=== PATIENT | male | born 1980 | race Hispanic/Latino ===

== ENCOUNTER 2020-07-17 09:44 | Inpatient (IN) | payer SELFPAY ==
--- NOTE | 2020-07-17 10:41 | Event Note ---
ED Screening Note Date of service: 07/17/20 Time: 10:40 ED Screening Note: Patient complains of chest pain epigastric pain with nausea and vomiting Was seen at [facility] for the same Actively vomiting in triage Admits to use of meth and marijuana This initial assessment/diagnostic orders/clinical plan/treatment(s) is/are subject to change based on patients health status, clinical progression and re- assessment by fellow clinical providers in the ED. Further treatment and workup at subsequent clinical providers discretion. Patient/guardian urged not to elope from the ED as their condition may be serious if not clinically assessed and managed. Initial orders include: Labs EKG Chest x-ray
--- NOTE | 2020-07-17 11:19 | XRay Report ---
CHEST 2 VIEWS INDICATION / CLINICAL INFORMATION: chest pain. COMPARISON: None available. FINDINGS: SUPPORT DEVICES: None. HEART / MEDIASTINUM: No significant abnormality. LUNGS / PLEURA: No significant pulmonary or pleural abnormality. No pneumothorax. ADDITIONAL FINDINGS: No significant additional findings. IMPRESSION: 1. No acute findings. Signer Name: Bereket Vázquez MD Signed: 07/17/2020 11:15 AM Workstation Name: [id number]
[2020-07-17 12:55] LABS: Hematocrit 39.7 % (35.5-45.6); Hemoglobin 13.6 gm/dl (11.8-15.2); Mean Corpuscular HGB Conc 34 % (32-34); Mean Corpuscular Volume 85 fl (84-94); Platelet Count 476 K/mm3 (140-440); Red Blood Count 4.68 M/mm3 (3.65-5.03); Red Cell Distribution Width 14.6 % (13.2-15.2)
[2020-07-17 13:12] LABS: Alanine Aminotransferase 13 units/L (7-56); Albumin 4.5 g/dL (3.9-5); BUN/Creatinine Ratio 13; Blood Urea Nitrogen 12 mg/dL (9-20); Calcium 9.8 mg/dL (8.4-10.2); Hemolysis Index 2
[2020-07-17 13:57] LABS: Total Cells Counted 100
[2020-07-17 13:58] LABS: RBC Morphology Normal
[2020-07-17 13:59] LABS: Platelet Estimate Consistent w Auto
[2020-07-17] MEDS ORDERED: ASPIRIN 325 MG TAB PO ONE (17:07)
--- NOTE | 2020-07-17 17:34 | Emergency Department Report ---
ED Chest Pain HPI - General Chief Complaint: Chest Pain Stated Complaint: CHEST PAIN PUI?: No Time Seen by Provider: 07/17/20 16:47 Source: patient Mode of arrival: Ambulatory Limitations: No Limitations - History of Present Illness Initial Comments: 40-year-old male with history of DM 2 and methamphetamine use brought in by EMS for chest/epigastric pain which began last night. The patient states that his last bowel movement was a few days ago. He says that last night he developed pain in his chest and epigastrium which he describes as pressure-like. He admits to using methamphetamine yesterday via inhalation. He says that last night although the pain was in his chest, this morning it migrated more to his abdomen. It was accompanied by nausea and vomiting which is since resolved. The patient's states that the pain has been constant but the last time he had chest pain was last night. With the chest pain, it was nonradiating and was not accompanied by shortness of breath, palpitations, or radiation of the pain to the arms or to the jaw. He denies IV drug use or use of any other substances. At this time he no longer feels nauseated but does have some pain in his abdomen. He denies any other associated symptoms or complaints. - Related Data Allergies Allergy/AdvReac Type Severity Reaction Status Date / Time No Known Allergies Allergy Verified 07/17/20 22:16 Heart Score - HEART Score History: Slightly suspicious EKG: Normal Age: < 45 Risk factors: 1-2 risk factors Troponin: < normal limit HEART Score: 1 - EKG Read Time Time EKG Completed: 10:02 EKG Read Time: 10:10 - Critical Actions Critical Actions: 0-3 pts:0.9-1.7%risk of adverse cardiac event.Candidate for discharge ED Review of Systems ROS: Stated complaint: CHEST PAIN Other details as noted in HPI Constitutional: denies: fever, weakness Eyes: denies: eye pain, vision change ENT: denies: throat pain, epistaxis Respiratory: denies: cough, shortness of breath Cardiovascular: chest pain. denies: palpitations, syncope Gastrointestinal: abdominal pain, nausea, vomiting. denies: diarrhea Genitourinary: denies: dysuria Musculoskeletal: denies: back pain, myalgia Neurological: denies: headache, weakness ED Past Medical Hx - Past Medical History Previous Medical History?: Yes Hx Diabetes: Yes - Social History Smoking Status: Current Every Day Smoker Substance Use Type: Marijuana, Methamphetamines ED Physical Exam - Other Other exam information: GENERAL: Well developed. Well nourished. No acute distress HEENT: Normocephalic. Atratumatic. Dry mucous membranes. EYES: Extraocular movements are intact. Pupils are equal round and reactive to light bilaterally NECK: Supple. Trachea is midline. LUNGS: Nonlabored breathing. Equal chest rise bilaterally. Clear to auscultation bilaterally. HEART/CARDIOVASCULAR: Regular rate and rhythm. No murmurs or rubs. ABDOMEN: Abdomen is slightly distended but soft. Normal bowel sounds. There is tenderness of the RUQ and epigastrium without guarding or rebound SKIN: Skin is warm and dry NEURO: Patient is awake, alert, and oriented. No focal deficits. Normal motor and sensory exam throughout. Normal speech. MUSCULOSKELETAL: Normal ROM throughout. There are no tenderness or deformity. No significant limitation of range of motion. ED Course Vital Signs 07/17/20 07/17/20 07/17/20 10:06 19:17 19:24 Temperature 97.4 F L 98.6 F Pulse Rate 80 84 Respiratory 15 19 16 Rate Blood Pressure 180/113 Blood Pressure 169/106 [Left] O2 Sat by Pulse 100 100 Oximetry 07/17/20 19:47 Temperature Pulse Rate Respiratory 16 Rate Blood Pressure Blood Pressure [Left] O2 Sat by Pulse Oximetry AARON score - Aaron Score Age > 65: (0) No Aspirin use within the Past 7 Days: (0) No 3 or more CAD Risk Factors: (0) No 2 or more Angina events in past 24 hrs: (0) No Known CAD with more than 50% Stenosis: (0) No Elevated Cardiac Markers: (0) No ST Deviation Greater than 0.5mm: (0) No AARON Score: 0 ED Medical Decision Making - Lab Data Result diagrams: 07/17/20 12:11 07/17/20 12:11 Laboratory Results - last 24 hr 07/17/20 07/17/20 07/17/20 10:05 12:11 12:11 WBC 30.1 H RBC 4.68 Hgb 13.6 Hct 39.7 MCV 85 MCH 29 MCHC 34 RDW 14.6 Plt Count 476 H Add Manual Diff Complete Total Counted 100 Seg Neuts % (Manual) 86.0 H Lymphocytes % (Manual) 6.0 L Monocytes % (Manual) 8.0 H Nucleated RBC % Not Reportable Seg Neutrophils # Man 25.9 H Band Neutrophils # 0.0 Lymphocytes # (Manual) 1.8 Abs React Lymphs (Man) 0.0 Monocytes # (Manual) 2.4 H Eosinophils # (Manual) 0.0 Basophils # (Manual) 0.0 Metamyelocytes # 0.0 Myelocytes # 0.0 Promyelocytes # 0.0 Blast Cells # 0.0 WBC Morphology Not Reportable Hypersegmented Neuts Not Reportable Hyposegmented Neuts Not Reportable Hypogranular Neuts Not Reportable Smudge Cells Not Reportable Toxic Granulation Not Reportable Toxic Vacuolation Not Reportable Dohle Bodies Not Reportable Pelger-Huet Anomaly Not Reportable Charlotte Rods Not Reportable Platelet Estimate Consistent w auto Clumped Platelets Not Reportable Plt Clumps, EDTA Not Reportable Large Platelets Not Reportable Giant Platelets Not Reportable Platelet Satelliting Not Reportable Plt Morphology Comment Not Reportable RBC Morphology Normal Dimorphic RBCs Not Reportable Polychromasia Not Reportable Hypochromasia Not Reportable Poikilocytosis Not Reportable Anisocytosis Not Reportable Microcytosis Not Reportable Macrocytosis Not Reportable Spherocytes Not Reportable Pappenheimer Bodies Not Reportable Sickle Cells Not Reportable Target Cells Not Reportable Tear Drop Cells Not Reportable Ovalocytes Not Reportable Helmet Cells Not Reportable Campos-Bostic Bodies Not Reportable Lefor Rings Not Reportable Chidi Cells Not Reportable Bite Cells Not Reportable Crenated Cell Not Reportable Elliptocytes Not Reportable Acanthocytes (Spur) Not Reportable Rouleaux Not Reportable Hemoglobin C Crystals Not Reportable Schistocytes Not Reportable Malaria parasites Not Reportable Tony Bodies Not Reportable Hem Pathologist Commnt No Sodium 138 Potassium 3.9 Chloride 97.6 L Carbon Dioxide 27 Anion Gap 17 BUN 12 Creatinine 0.9 Estimated GFR > 60 BUN/Creatinine Ratio 13 Glucose 126 H POC Glucose 140 H Calcium 9.8 Total Bilirubin 0.50 AST 13 ALT 13 Alkaline Phosphatase 132 H Troponin T < 0.010 Total Protein 8.5 H Albumin 4.5 Albumin/Globulin Ratio 1.1 Lipase 23 07/17/20 17:10 WBC RBC Hgb Hct MCV MCH MCHC RDW Plt Count Add Manual Diff Total Counted Seg Neuts % (Manual) Lymphocytes % (Manual) Monocytes % (Manual) Nucleated RBC % Seg Neutrophils # Man Band Neutrophils # Lymphocytes # (Manual) Abs React Lymphs (Man) Monocytes # (Manual) Eosinophils # (Manual) Basophils # (Manual) Metamyelocytes # Myelocytes # Promyelocytes # Blast Cells # WBC Morphology Hypersegmented Neuts Hyposegmented Neuts Hypogranular Neuts Smudge Cells Toxic Granulation Toxic Vacuolation Dohle Bodies Pelger-Huet Anomaly Charlotte Rods Platelet Estimate Clumped Platelets Plt Clumps, EDTA Large Platelets Giant Platelets Platelet Satelliting Plt Morphology Comment RBC Morphology Dimorphic RBCs Polychromasia Hypochromasia Poikilocytosis Anisocytosis Microcytosis Macrocytosis Spherocytes Pappenheimer Bodies Sickle Cells Target Cells Tear Drop Cells Ovalocytes Helmet Cells Campos-Bostic Bodies Lefor Rings Chidi Cells Bite Cells Crenated Cell Elliptocytes Acanthocytes (Spur) Rouleaux Hemoglobin C Crystals Schistocytes Malaria parasites Tony Bodies Hem Pathologist Commnt Sodium Potassium Chloride Carbon Dioxide Anion Gap BUN Creatinine Estimated GFR BUN/Creatinine Ratio Glucose POC Glucose Calcium Total Bilirubin AST ALT Alkaline Phosphatase Troponin T < 0.010 Total Protein Albumin Albumin/Globulin Ratio Lipase - EKG Data -: EKG Interpreted by [place] EKG shows normal: sinus rhythm Rate: normal - EKG Data 07/17/20 17:31 Normal sinus rhythm. Normal axis. Normal intervals. No significant ST segment or T wave abnormalities. - Radiology Data CT ABDOMEN AND PELVIS WITH CONTRAST INDICATION: Abdominal pain right upper quadrant. TECHNIQUE: Axial CT images were obtained through the abdomen and pelvis after IV contrast. All CT scans at this location are performed using CT dose reduction for ALARA by means of automated exposure control. COMPARISON: None available. FINDINGS: LOWER CHEST: No significant abnormality. LIVER: No significant abnormality. GALLBLADDER: Probable gallbladder thickening with severe pericholecystic inflammation within the right upper quadrant abdomen. No definite CT evidence for gallstones. BILE DUCTS: No significant abnormality. PANCREAS: No significant abnormality. SPLEEN: No significant abnormality. ADRENALS: No significant abnormality. RIGHT KIDNEY and URETER: No significant abnormality. LEFT KIDNEY and URETER: No significant abnormality. STOMACH and SMALL BOWEL: Moderate inflammation and edema anterior to duodenal bulb likely secondary to acute cholecystitis, however, duodenitis cannot be excluded COLON: No significant abnormality. APPENDIX: No significant abnormality. PERITONEUM: Trace amount of free pelvic fluid. No free air. No fluid collection. LYMPH NODES: No significant adenopathy. AORTA and ARTERIES: No significant abnormality. IVC and VEINS: No significant abnormality. URINARY BLADDER: No significant abnormality. REPRODUCTIVE ORGANS: No significant abnormality. ADDITIONAL FINDINGS: None. SKELETAL SYSTEM: No significant abnormality. IMPRESSION: 1. Probable acute cholecystitis versus less likely duodenitis/peptic ulcer disease. Findings discussed with Dr. Marie and gallbladder ultrasound r ecommended . 2. No visualized duodenal ulcer or free air. Signer Name: Sumeet Leblanc MD Signed: 07/17/2020 6:11 PM Workstation Name: [id number] LIMITED RUQ ABDOMINAL ULTRASOUND INDICATION / CLINICAL INFORMATION: RUQ pain. COMPARISON: CT abdomen 6:29 PM same day FINDINGS: PANCREAS: Visualized portions show no significant abnormality. ABDOMINAL AORTA: No significant abnormality. IVC: No significant abnormality.. LIVER: The liver measures 16 cm in length. No significant abnormality. Normal hepatopedal blood flow in the main portal vein. GALLBLADDER: Large amount of gallbladder sludge. Thickened edematous gallbladder wall measuring 5 mm characteristic for acute cholecystitis BILE DUCTS: No significant abnormality. Common bile duct measures 4 mm. RIGHT KIDNEY: No significant abnormality visualized. FREE FLUID: None. ADDITIONAL FINDINGS: None. IMPRESSION: 1. Acute cholecystitis with large amount of gallbladder sludge and thickened and edematous gallbladder wall Signer Name: Sumeet Leblanc MD Signed: 07/17/2020 9:12 PM Workstation Name: [id number] - Medical Decision Making 40-year-old male with history of DM 2 presenting with chest/epigastric pain since last night. The patient admits to using methamphetamine last night but denies that the pain started after using. Patient was nauseated and vomiting upon arrival but this resolved. Patient states that the pain started in his chest but this resolved last night and the pain moved mainly to his epigastrium. He says the last time he experienced chest pain was last night. On exam, he is noted to have very dry mucous membranes. His abdomen is soft but slightly distended. There is tenderness noted in the right upper quadrant and epigastrium. We will perform broad work-up with full set of labs, EKG, and troponin x2. We will also obtain chest x-ray and CT of the abdomen and pelvis with IV contrast to assess for evidence of cholecystitis, pancreatitis, or other intra-abdominal catastrophes. Will give 1L IVFs and 325 mg of aspirin given the patient's chief complaint was initially chest pain. Troponin is negative x2. Labs are remarkable for leukocytosis of 30.1 which may be stress leukocytosis given that the patient was retching and admits to methamphetamine use. There is no significant electrolyte abnormalities or elevated lipase to suggest pancreatitis. Chest x-ray is within normal limits. Heart score is 1, corresponding to low risk of major cardiac event. We will foll ow up findings of the CT scan. At 7 PM I received a call from the radiologist who said states that the patient CT of the abdomen and pelvis reveals extensive inflammation in the right upper quadrant which may be secondary to cholecystitis or duodenitis. He recommends further evaluation with ultrasound. Given that there is evidence for some type of intra-abdominal infection, we will give broad-spectrum Zosyn and a total of 3 L of IV fluids. We will give Dilaudid and Zofran for the patient's symptoms. At 9:19 PM I spoke with Dr. Stokes of general surgery regarding the case. He recommends making the patient n.p.o. and continuing Zosyn. He says he will see the patient first thing in the morning. Critical Care Time: No Critical care attestation.: If time is entered above; I have spent that time in minutes in the direct care of this critically ill patient, excluding procedure time. ED Disposition Clinical Impression: Cholecystitis, Methamphetamine abuse Chest pain Qualifiers: Chest pain type: unspecified Qualified Code(s): R07.9 - Chest pain, unspecified Disposition: OP ADMIT IP TO THIS HOSP Is pt being admited?: Yes Condition: Stable
[2020-07-17] MEDS ORDERED: SODIUM CHLORIDE 0.9% 1000 ML 1,000 ML IV ONE ×3 (18:20→19:14)
[2020-07-17] MEDS ORDERED: PIPERACIL/TAZOBACTA 4.5/NS 100 4.5 GM/100 ML VIAL IV ONE (19:11)
[2020-07-17] MEDS ORDERED: HYDROmorphone 1 MG/1 ML INJ IV ONE (19:12)
[2020-07-17] MEDS ORDERED: ONDANSETRON 4 MG/2 ML INJ IV ONE (19:13)
--- NOTE | 2020-07-17 19:15 | Cat Scan Report ---
CT ABDOMEN AND PELVIS WITH CONTRAST INDICATION: Abdominal pain right upper quadrant. TECHNIQUE: Axial CT images were obtained through the abdomen and pelvis after IV contrast. All CT scans at this location are performed using CT dose reduction for ALARA by means of automated exposure control. COMPARISON: None available. FINDINGS: LOWER CHEST: No significant abnormality. LIVER: No significant abnormality. GALLBLADDER: Probable gallbladder thickening with severe pericholecystic inflammation within the righ t upper quadrant abdomen. No definite CT evidence for gallstones. BILE DUCTS: No significant abnormality. PANCREAS: No significant abnormality. SPLEEN: No significant abnormality. ADRENALS: No significant abnormality. RIGHT KIDNEY and URETER: No significant abnormality. LEFT KIDNEY and URETER: No significant abnormality. STOMACH and SMALL BOWEL: Moderate inflammation and edema anterior to duodenal bulb likely secondary t o acute cholecystitis, however, duodenitis cannot be excluded COLON: No significant abnormality. APPENDIX: No significant abnormality. PERITONEUM: Trace amount of free pelvic fluid. No free air. No fluid collection. LYMPH NODES: No significant adenopathy. AORTA and ARTERIES: No significant abnormality. IVC and VEINS: No significant abnormality. URINARY BLADDER: No significant abnormality. REPRODUCTIVE ORGANS: No significant abnormality. ADDITIONAL FINDINGS: None. SKELETAL SYSTEM: No significant abnormality. IMPRESSION: 1. Probable acute cholecystitis versus less likely duodenitis/peptic ulcer disease. Findings discusse d with Dr. Marie and gallbladder ultrasound recommended . 2. No visualized duodenal ulcer or free air. Signer Name: Sumeet Leblanc MD Signed: 07/17/2020 7:11 PM Workstation Name: [id number]
[2020-07-17] MEDS ORDERED: ACETAMINOPHEN 325 MG TAB PO PRN ×2 (22:08)
[2020-07-17] MEDS ORDERED: NITROGLYCERIN 0.4 MG TAB SUBL SL PRN (22:08)
[2020-07-17] MEDS ORDERED: ONDANSETRON 4 MG/2 ML INJ IV PRN (22:08)
--- NOTE | 2020-07-17 22:15 | History and Physical Report ---
History of Present Illness Date of examination: 07/17/20 Date of admission: 07/17/20 Chief complaint: Chest pain epigastric pain History of present illness: 40-year-old male with past medical history of DM 2 and methamphetamine use brought in by EMS for chest/epigastric pain which is pressure-like which began last night after using methamphetamine yesterday by inhalation. Patient says that last night although the pain was in his chest, this morning it migrated more to his abdomen. It was accompanied by nausea and vomiting which is since resolved. The patient's states that the pain has been constant but the last time he had chest pain was last night. With the chest pain, it was nonradiating and was not accompanied by shortness of breath, palpitations, or radiation of the pain to the arms or to the jaw. He denies IV drug use or use of any other substances. At this time he no longer feels nauseated but does have some pain in his abdomen. He denies any other associated symptoms or complaints. In the emergency room patient WBC is 30.[address] scan of the abdomen and pelvis showed extensive inflammation in the right upper quadrant which may secondary to cholecystitis or duodenitis. Past History Past Medical History: diabetes, other (Methamphetamine abuse) Medications and Allergies Allergies Allergy/AdvReac Type Severity Reaction Status Date / Time No Known Allergies Allergy Unverified 07/17/20 10:14 Review of Systems Cardiovascular: chest pain Gastrointestinal: abdominal pain, nausea, vomiting, constipation Exam - Constitutional Vitals: Temp Pulse Resp BP Pulse Ox 98.6 F 84 16 169/106 100 07/17/20 19:24 07/17/20 19:24 07/17/20 19:47 07/17/20 19:24 07/17/20 19:24 General appearance: Present: no acute distress, well-nourished - EENT Eyes: Present: PERRL ENT: hearing intact, clear oral mucosa - Neck Neck: Present: supple, normal ROM - Respiratory Respiratory effort: normal Respiratory: bilateral: CTA - Cardiovascular Heart Sounds: Present: S1 & S2. Absent: rub, click - Extremities Extremities: pulses symmetrical, No edema Peripheral Pulses: within normal limits - Abdominal General gastrointestinal: Present: soft, tender, distended, normal bowel sounds Male genitourinary: Present: normal - Integumentary Integumentary: Present: clear, warm, dry - Musculoskeletal Musculoskeletal: gait normal, strength equal bilaterally - Psychiatric Psychiatric: appropriate mood/affect, intact judgment & insight - Neurologic Neurologic: CNII-XII intact, moves all extremities HEART Score - HEART Score EKG: Normal Age: < 45 Risk factors: 1-2 risk factors Troponin: Troponin T < 0.010 ng/mL (0.00-0.029) 07/17/20 17:10 Troponin: < normal limit Results - Labs CBC & Chem 7: 07/17/20 12:11 07/17/20 12:11 Labs: Laboratory Last Values WBC 30.1 K/mm3 (4.5-11.0) H 07/17/20 12:11 RBC 4.68 M/mm3 (3.65-5.03) 07/17/20 12:11 Hgb 13.6 gm/dl (11.8-15.2) 07/17/20 12:11 Hct 39.7 % (35.5-45.6) 07/17/20 12:11 MCV 85 fl (84-94) 07/17/20 12:11 MCH 29 pg (28-32) 07/17/20 12:11 MCHC 34 % (32-34) 07/17/20 12:11 RDW 14.6 % (13.2-15.2) 07/17/20 12:11 Plt Count 476 K/mm3 (140-440) H 07/17/20 12:11 Add Manual Diff Complete 07/17/20 12:11 Total Counted 100 07/17/20 12:11 Seg Neuts % (Manual) 86.0 % (40.0-70.0) H 07/17/20 12:11 Lymphocytes % (Manual) 6.0 % (13.4-35.0) L 07/17/20 12:11 Monocytes % (Manual) 8.0 % (0.0-7.3) H 07/17/20 12:11 Nucleated RBC % Not Reportable 07/17/20 12:11 Seg Neutrophils # Man 25.9 K/mm3 (1.8-7.7) H 07/17/20 12:11 Band Neutrophils # 0.0 K/mm3 07/17/20 12:11 Lymphocytes # (Manual) 1.8 K/mm3 (1.2-5.4) 07/17/20 12:11 Abs React Lymphs (Man) 0.0 K/mm3 07/17/20 12:11 Monocytes # (Manual) 2.4 K/mm3 (0.0-0.8) H 07/17/20 12:11 Eosinophils # (Manual) 0.0 K/mm3 (0.0-0.4) 07/17/20 12:11 Basophils # (Manual) 0.0 K/mm3 (0.0-0.1) 07/17/20 12:11 Metamyelocytes # 0.0 K/mm3 07/17/20 12:11 Myelocytes # 0.0 K/mm3 07/17/20 12:11 Promyelocytes # 0.0 K/mm3 07/17/20 12:11 Blast Cells # 0.0 K/mm3 07/17/20 12:11 WBC Morphology Not Reportable 07/17/20 12:11 Hypersegmented Neuts Not Reportable 07/17/20 12:11 Hyposegmented Neuts Not Reportable 07/17/20 12:11 Hypogranular Neuts Not Reportable 07/17/20 12:11 Smudge Cells Not Reportable 07/17/20 12:11 Toxic Granulation Not Reportable 07/17/20 12:11 Toxic Vacuolation Not Reportable 07/17/20 12:11 Dohle Bodies Not Reportable 07/17/20 12:11 Pelger-Huet Anomaly Not Reportable 07/17/20 12:11 Charlotte Rods Not Reportable 07/17/20 12:11 Platelet Estimate Consistent w auto 07/17/20 12:11 Clumped Platelets Not Reportable 07/17/20 12:11 Plt Clumps, EDTA Not Reportable 07/17/20 12:11 Large Platelets Not Reportable 07/17/20 12:11 Giant Platelets Not Reportable 07/17/20 12:11 Platelet Satelliting Not Reportable 07/17/20 12:11 Plt Morphology Comment Not Reportable 07/17/20 12:11 RBC Morphology Normal 07/17/20 12:11 Dimorphic RBCs Not Reportable 07/17/20 12:11 Polychromasia Not Reportable 07/17/20 12:11 Hypochromasia Not Reportable 07/17/20 12:11 Poikilocytosis Not Reportable 07/17/20 12:11 Anisocytosis Not Reportable 07/17/20 12:11 Microcytosis Not Reportable 07/17/20 12:11 Macrocytosis Not Reportable 07/17/20 12:11 Spherocytes Not Reportable 07/17/20 12:11 Pappenheimer Bodies Not Reportable 07/17/20 12:11 Sickle Cells Not Reportable 07/17/20 12:11 Target Cells Not Reportable 07/17/20 12:11 Tear Drop Cells Not Reportable 07/17/20 12:11 Ovalocytes Not Reportable 07/17/20 12:11 Helmet Cells Not Reportable 07/17/20 12:11 [place] Bodies Not Reportable 07/17/20 12:11 [place] Rings Not Reportable 07/17/20 12:11 Antoine Cells Not Reportable 07/17/20 12:11 Bite Cells Not Reportable 07/17/20 12:11 Crenated Cell Not Reportable 07/17/20 12:11 Elliptocytes Not Reportable 07/17/20 12:11 Acanthocytes (Spur) Not Reportable 07/17/20 12:11 Rouleaux Not Reportable 07/17/20 12:11 Hemoglobin C Crystals Not Reportable 07/17/20 12:11 Schistocytes Not Reportable 07/17/20 12:11 Malaria parasites Not Reportable 07/17/20 12:11 Tony Bodies Not Reportable 07/17/20 12:11 Hem Pathologist Commnt No 07/17/20 12:11 Sodium 138 mmol/L (137-145) 07/17/20 12:11 Potassium 3.9 mmol/L (3.6-5.0) 07/17/20 12:11 Chloride 97.6 mmol/L (98-107) L 07/17/20 12:11 Carbon Dioxide 27 mmol/L (22-30) 07/17/20 12:11 Anion Gap 17 mmol/L 07/17/20 12:11 BUN 12 mg/dL (9-20) 07/17/20 12:11 Creatinine 0.9 mg/dL (0.8-1.3) 07/17/20 12:11 Estimated GFR > 60 ml/min 07/17/20 12:11 BUN/Creatinine Ratio 13 % 07/17/20 12:11 Glucose 126 mg/dL (75-100) H 07/17/20 12:11 POC Glucose 140 mg/dL (70-105) H 07/17/20 10:05 Calcium 9.8 mg/dL (8.4-10.2) 07/17/20 12:11 Total Bilirubin 0.50 mg/dL (0.1-1.2) 07/17/20 12:11 AST 13 units/L (5-40) 07/17/20 12:11 ALT 13 units/L (7-56) 07/17/20 12:11 Alkaline Phosphatase 132 units/L (35-129) H 07/17/20 12:11 Troponin T < 0.010 ng/mL (0.00-0.029) 07/17/20 17:10 Total Protein 8.5 g/dL (6.3-8.2) H 07/17/20 12:11 Albumin 4.5 g/dL (3.9-5) 07/17/20 12:11 Albumin/Globulin Ratio 1.1 % 07/17/20 12:11 Lipase 23 units/L (13-60) 07/17/20 12:11 - Imaging and Cardiology CT scan - abdomen: report reviewed Assessment and Plan VTE prophylaxis?: Chemical Plan of care discussed with patient/family: Yes - Patient Problems (1) Cholecystitis Current Visit: Yes Status: Acute Plan to address problem: Admit the patient to the medical floor. N.p.o. D5 half-normal saline at the rate of 100 cc/h. Pepcid 20 mg IV every 12 hours. Morphine 2 mg IV every 4 hours as needed. Zosyn 4.5 g IV every 8 hours. Due to the blood culture. Will consult surgery for evaluation. Recheck CBC BMP in the morning (2) Duodenitis Current Visit: Yes Status: Acute Plan to address problem: Pepcid 20 mg IV every 12 hours. Zofran 4 mg IV every 6 hours as needed. If needed will consult GI (3) Nausea & vomiting Current Visit: Yes Status: Acute Plan to address problem: Nothing by mouth. IV fluid D5 half-normal saline at the rate of 100 cc/h.Pepcid 20 mg IV every 12 hours. Zofran 4 mg IV every 6 hours as needed. If needed will consult GI (4) Abdominal pain Current Visit: Yes Status: Acute Plan to address problem: Pepcid 20 mg IV every 12 hours. Zofran 4 mg IV every 6 hours as needed. Morphine 2 mg IV every 4 hours as needed. If needed will consult GI (5) Diabetes, type 1.5, uncontrolled, managed as type 2 Current Visit: Yes Status: Acute Plan to address problem: We will put the patient on Humalog sliding scale with Accu-Chek every 6 hours. Diabetic education. Recheck BMP in the morning (6) Methamphetamine abuse Current Visit: Yes Status: Acute Plan to address problem: We counseled regarding quit taking meth amphetamine (7) DVT prophylaxis Current Visit: Yes Status: Acute Plan to address problem: Heparin 5000 units subcu every 8 hours for DVT prophylaxis and Pepcid 20 mg IV every 12 hours for GI prophylaxis. Patient is a full code
--- NOTE | 2020-07-17 22:17 | Ultrasound Report ---
LIMITED RUQ ABDOMINAL ULTRASOUND INDICATION / CLINICAL INFORMATION: RUQ pain. COMPARISON: CT abdomen 6:29 PM same day FINDINGS: PANCREAS: Visualized portions show no significant abnormality. ABDOMINAL AORTA: No significant abnormality. IVC: No significant abnormality.. LIVER: The liver measures 16 cm in length. No significant abnormality. Normal hepatopedal blood flow in the main portal vein. GALLBLADDER: Large amount of gallbladder sludge. Thickened edematous gallbladder wall measuring 5 mm characteristic for acute cholecystitis BILE DUCTS: No significant abnormality. Common bile duct measures 4 mm. RIGHT KIDNEY: No significant abnormality visualized. FREE FLUID: None. ADDITIONAL FINDINGS: None. IMPRESSION: 1. Acute cholecystitis with large amount of gallbladder sludge and thickened and edematous gallbladde r wall Signer Name: Sumeet Leblanc MD Signed: 07/17/2020 10:12 PM Workstation Name: [id number]
[2020-07-17] MEDS ORDERED: DEXTROSE 50% IN WATER (25GM) 50 ML SYRINGE IV PRN (22:22)
[2020-07-17 23:32] LABS: Hemoglobin 12.1 gm/dl (11.8-15.2); Mean Corpuscular HGB Conc 35 % (32-34); Mean Corpuscular Volume 86 fl (84-94); Platelet Count 385 K/mm3 (140-440); Red Blood Count 4.08 M/mm3 (3.65-5.03); Red Cell Distribution Width 14.8 % (13.2-15.2)
[2020-07-17 23:51] LABS: Blood Urea Nitrogen 9 mg/dL (9-20); Calcium 8.1 mg/dL (8.4-10.2); Hemolysis Index 9
[2020-07-17 23:54] LABS: BUN/Creatinine Ratio 13
[2020-07-18] MEDS: INSULIN LISPRO 100 UNIT/ML SUB-Q SCH ×4 (00:50→17:33)
[2020-07-18] MEDS: D5W/0.45% NACL 1,000 ML IV SCH ×2 (00:57→22:55)
[2020-07-18 03:15] LABS: Band Neutrophils # (Manual) 1.1 K/mm3; Total Cells Counted 100
[2020-07-18 03:16] LABS: Platelet Estimate Consistent w Auto; RBC Morphology Normal
[2020-07-18] MEDS: PIPERACIL/TAZOBACTA 4.5/NS 100 4.5 GM/100 ML VIAL IV SCH ×3 (03:56→22:33)
[2020-07-18] MEDS: IPRATROPIUM/ALBUTEROL SULFATE 3 ML AMPUL.NEB IH SCH ×4 (04:01→21:32)
[2020-07-18] MEDS: MORPHINE 2 MG/1 ML INJ IV PRN ×5 (04:30→22:47)
[2020-07-18 04:49] LABS: Hematocrit 36.5 % (35.5-45.6); Hemoglobin 12.7 gm/dl (11.8-15.2); Mean Corpuscular HGB Conc 35 % (32-34); Mean Corpuscular Volume 86 fl (84-94); Platelet Count 375 K/mm3 (140-440); Red Blood Count 4.26 M/mm3 (3.65-5.03); Red Cell Distribution Width 14.9 % (13.2-15.2)
[2020-07-18 05:04] LABS: Blood Urea Nitrogen 9 mg/dL (9-20); Calcium 8.4 mg/dL (8.4-10.2); Hemolysis Index 2
[2020-07-18] MEDS: HEPARIN 5,000 UNIT/1 ML VIAL SUB-Q SCH ×4 (05:23→22:33)
[2020-07-18 05:25] LABS: BUN/Creatinine Ratio 13
[2020-07-18] MEDS: FAMOTIDINE 20 MG/2 ML INJ IV SCH ×3 (08:36→22:33)
[2020-07-18 11:00] LABS: Band Neutrophils # (Manual) 1.5 K/mm3; Total Cells Counted 100
[2020-07-18 11:01] LABS: Platelet Estimate Consistent w Auto; RBC Morphology Normal
--- NOTE | 2020-07-18 12:28 | Consultation ---
History of Present Illness Consult date: 07/18/20 Reason for consult: abdominal pain Chief complaint: chest/epigastric pain - History of present illness History of present illness: 40 yo male, admitted meth abuser presented to the ED yesterday with a 24 hour h/o chest/epigastric pain associated with nausea and vomiting. Denies melena or hematochezia. Past History Past Medical History: diabetes, other (Methamphetamine abuse) Medications and Allergies Allergies Allergy/AdvReac Type Severity Reaction Status Date / Time No Known Allergies Allergy Verified 07/17/20 22:16 Home Medications Medication Instructions Recorded Confirmed Last Taken Type Nicotine Polacrilex [Nicotine 2 mg PO BID 07/18/20 07/18/20 Unknown History Lozenge] One-Daily Multi-Vitamin 1 tab PO BID 07/18/20 07/18/20 Unknown History PROzac 1 cap PO DAILY 07/18/20 07/18/20 Unknown History cloNIDine [Catapres] 0.1 mg PO DAILY 07/18/20 07/18/20 Unknown History hydrOXYzine PAMOATE [Vistaril] 25 mg PO TID 07/18/20 07/18/20 Unknown History lisinopriL [Lisinopril] 10 mg PO DAILY 07/18/20 07/18/20 Unknown History traZODone [Desyrel] 50 mg PO HS PRN 07/18/20 07/18/20 Unknown History Active Meds: Active Medications Acetaminophen (Acetaminophen 325 Mg Tab) 650 mg PO Q4H PRN PRN Reason: Pain MILD(1-3)/Fever >100.5/CONRAD Albuterol/Ipratropium (Ipratropium/Albuterol Sulfate 3 Ml Ampul.Neb) 1 ampul IH Q6HRT [facility] Last Admin: 07/18/20 08:04 Dose: 1 ampul Documented by: Aspirin (Aspirin 81 Mg Tab Chew) 81 mg PO QDAY [facility] Atorvastatin Calcium (Atorvastatin 40 Mg Tab) 40 mg PO QHS [facility] Dextrose (Dextrose 50% In Water (25gm) 50 Ml Syringe) 50 ml IV Q30MIN PRN; Protocol PRN Reason: Hypoglycemia Famotidine (Famotidine 20 Mg/2 Ml Inj) 20 mg IV BID [facility] Last Admin: 07/18/20 10:34 Dose: Not Given Documented by: Heparin Sodium (Porcine) (Heparin 5,000 Unit/1 Ml Vial) 5,000 unit SUB-Q Q8HR [facility] Last Admin: 07/18/20 05:23 Dose: 5,000 unit Documented by: Hydralazine HCl (Hydralazine 20 Mg/1 Ml Inj) 10 mg IV Q6H PRN PRN Reason: htn Dextrose/Sodium Chloride (D5/0.45ns) 1,000 mls @ 100 mls/hr IV DIRECT [facility] Last Admin: 07/18/20 00:57 Dose: 100 mls/hr Documented by: Piperacillin Sod/Tazobactam Sod (Zosyn/Ns 4.5gm/100ml) 4.5 gm in 100 mls @ 200 mls/hr IV Q8H [facility]; Protocol Last Admin: 07/18/20 03:56 Dose: 200 mls/hr Documented by: Insulin Human Lispro (Insulin Lispro 100 Unit/Ml) 0 unit SUB-Q Q6HR [facility]; Protocol Last Admin: 07/18/20 06:17 Dose: Not Given Documented by: Morphine Sulfate (Morphine 2 Mg/1 Ml Inj) 2 mg IV Q4H PRN PRN Reason: Pain, Moderate (4-6) Last Admin: 07/18/20 08:35 Dose: 2 mg Documented by: Nitroglycerin (Nitroglycerin 0.4 Mg Tab Subl) 0.4 mg SL Q5M PRN PRN Reason: Chest Pain Ondansetron HCl (Ondansetron 4 Mg/2 Ml Inj) 4 mg IV Q8H PRN PRN Reason: Nausea And Vomiting Sodium Chloride (Sodium Chloride 0.9% 10 Ml Flush Syringe) 10 ml IV BID [facility] Sodium Chloride (Sodium Chloride 0.9% 10 Ml Flush Syringe) 10 ml IV PRN PRN PRN Reason: LINE FLUSH Tramadol HCl (Tramadol 50 Mg Tab) 50 mg PO Q6H PRN PRN Reason: Pain, Moderate (4-6) Review of Systems All systems: negative (none) Exam Vital Signs Temp Pulse Resp BP Pulse Ox 97.4 F L 80 15 180/113 100 07/17/20 10:06 07/17/20 10:06 07/17/20 10:06 07/17/20 10:06 07/17/20 10:06 - General physical appearance Positive: well developed, well nourished, no distress - Eyes Positive: PERRL, normal occular movement - ENT Positive: normal pinna, normal nares, normal mucosa, no hearing loss, no congestion - Neck Positive: no masses, no bruits, trachea midline, no venous distension - Respiratory Positive: normal expansion, normal respiratory effort, clear to auscultation - Cardiovascular Rhythm: regular Heart Sounds: Present: S1 & S2. Absent: rub, click - Extremities Extremities: no ischemia, pulses symmetrical, No edema - Breasts Breasts: normal, no mass, no skin changes - Abdomen Abdomen: Present: soft, bowel sounds hypoactive, other (Mildly tender in the RUQ without rebound or guarding.). Absent: distended Hernia: none - Genitourinary Male Genitourinary: normal Female Genitourinary: normal - Integumentary no rash, no growths, no abnormal pigmentation - Neurologic Neurologic: alert and oriented to time, place and person, motor strength and sensation are grossly intact - Musculoskeletal normal gait, normal posture - Psychiatric Psychiatric: appropriate mood/affect, intact judgment & insight Results - Labs 07/18/20 04:05 07/18/20 04:05 Abnormal lab results 07/17/20 07/17/20 07/17/20 Range/Units 10:05 12:11 12:11 WBC 30.1 H (4.5-11.0) K/mm3 Hct (35.5-45.6) % MCHC (32-34) % Plt Count 476 H (140-440) K/mm3 Seg Neuts % (Manual) 86.0 H (40.0-70.0) % Lymphocytes % (Manual) 6.0 L (13.4-35.0) % Monocytes % (Manual) 8.0 H (0.0-7.3) % Seg Neutrophils # Man 25.9 H (1.8-7.7) K/mm3 Lymphocytes # (Manual) (1.2-5.4) K/mm3 Monocytes # (Manual) 2.4 H (0.0-0.8) K/mm3 Sodium (137-145) mmol/L Chloride 97.6 L (98-107) mmol/L Creatinine (0.8-1.3) mg/dL Glucose 126 H (75-100) mg/dL POC Glucose 140 H (70-105) mg/dL Calcium (8.4-10.2) mg/dL Alkaline Phosphatase 132 H (35-129) units/L Total Protein 8.5 H (6.3-8.2) g/dL 07/17/20 07/17/20 07/18/20 Range/Units 23:05 23:05 00:48 WBC 37.1 H (4.5-11.0) K/mm3 Hct 35.0 L (35.5-45.6) % MCHC 35 H (32-34) % Plt Count (140-440) K/mm3 Seg Neuts % (Manual) 86.0 H (40.0-70.0) % Lymphocytes % (Manual) 3.0 L (13.4-35.0) % Monocytes % (Manual) 8.0 H (0.0-7.3) % Seg Neutrophils # Man 31.9 H (1.8-7.7) K/mm3 Lymphocytes # (Manual) 1.1 L (1.2-5.4) K/mm3 Monocytes # (Manual) 3.0 H (0.0-0.8) K/mm3 Sodium 135 L (137-145) mmol/L Chloride (98-107) mmol/L Creatinine 0.7 L (0.8-1.3) mg/dL Glucose 119 H (75-100) mg/dL POC Glucose 110 H (70-105) mg/dL Calcium 8.1 L D (8.4-10.2) mg/dL Alkaline Phosphatase (35-129) units/L Total Protein (6.3-8.2) g/dL 07/18/20 07/18/20 07/18/20 Range/Units 04:05 04:05 06:14 WBC 38.1 H (4.5-11.0) K/mm3 Hct (35.5-45.6) % MCHC 35 H (32-34) % Plt Count (140-440) K/mm3 Seg Neuts % (Manual) 85.0 H (40.0-70.0) % Lymphocytes % (Manual) 2.0 L (13.4-35.0) % Monocytes % (Manual) (0.0-7.3) % Seg Neutrophils # Man 32.4 H (1.8-7.7) K/mm3 Lymphocytes # (Manual) 0.8 L (1.2-5.4) K/mm3 Monocytes # (Manual) 2.7 H (0.0-0.8) K/mm3 Sodium 134 L (137-145) mmol/L Chloride (98-107) mmol/L Creatinine 0.7 L (0.8-1.3) mg/dL Glucose 123 H (75-100) mg/dL POC Glucose 137 H (70-105) mg/dL Calcium (8.4-10.2) mg/dL Alkaline Phosphatase (35-129) units/L Total Protein (6.3-8.2) g/dL Diabetes panel 07/17/20 07/17/20 07/18/20 Range/Units 12:11 23:05 04:05 Sodium 138 135 L 134 L (137-145) mmol/L Potassium 3.9 4.1 4.2 (3.6-5.0) mmol/L Chloride 97.6 L 100.5 98.4 (98-107) mmol/L Carbon Dioxide 27 24 27 (22-30) mmol/L BUN 12 9 9 (9-20) mg/dL Creatinine 0.9 0.7 L 0.7 L (0.8-1.3) mg/dL Glucose 126 H 119 H 123 H (75-100) mg/dL Calcium 9.8 8.1 L D 8.4 (8.4-10.2) mg/dL AST 13 (5-40) units/L ALT 13 (7-56) units/L Alkaline Phosphatase 132 H (35-129) units/L Total Protein 8.5 H (6.3-8.2) g/dL Albumin 4.5 (3.9-5) g/dL Calcium panel 07/17/20 07/17/20 07/18/20 Range/Units 12:11 23:05 04:05 Calcium 9.8 8.1 L D 8.4 (8.4-10.2) mg/dL Albumin 4.5 (3.9-5) g/dL Pituitary panel 07/17/20 07/17/20 07/18/20 Range/Units 12:11 23:05 04:05 Sodium 138 135 L 134 L (137-145) mmol/L Potassium 3.9 4.1 4.2 (3.6-5.0) mmol/L Chloride 97.6 L 100.5 98.4 (98-107) mmol/L Carbon Dioxide 27 24 27 (22-30) mmol/L BUN 12 9 9 (9-20) mg/dL Creatinine 0.9 0.7 L 0.7 L (0.8-1.3) mg/dL Glucose 126 H 119 H 123 H (75-100) mg/dL Calcium 9.8 8.1 L D 8.4 (8.4-10.2) mg/dL Adrenal panel 07/17/20 07/17/20 07/18/20 Range/Units 12:11 23:05 04:05 Sodium 138 135 L 134 L (137-145) mmol/L Potassium 3.9 4.1 4.2 (3.6-5.0) mmol/L Chloride 97.6 L 100.5 98.4 (98-107) mmol/L Carbon Dioxide 27 24 27 (22-30) mmol/L BUN 12 9 9 (9-20) mg/dL Creatinine 0.9 0.7 L 0.7 L (0.8-1.3) mg/dL Glucose 126 H 119 H 123 H (75-100) mg/dL Calcium 9.8 8.1 L D 8.4 (8.4-10.2) mg/dL Total Bilirubin 0.50 (0.1-1.2) mg/dL AST 13 (5-40) units/L ALT 13 (7-56) units/L Alkaline Phosphatase 132 H (35-129) units/L Total Protein 8.5 H (6.3-8.2) g/dL Albumin 4.5 (3.9-5) g/dL - Imaging CT scan - abdomen: report reviewed CT scan - pelvis: report reviewed Assessment and Plan - Patient Problems (1) Right upper quadrant pain Current Visit: Yes Status: Acute Plan to address problem: 1) RUQ US 2) Continue Zosyn, Pepcid and NPO 3) CMP now 4) CBC and CMP tomorrow
[2020-07-18 14:17] LABS: Alanine Aminotransferase 20 units/L (7-56); Albumin 2.9 g/dL (3.9-5); Blood Urea Nitrogen 8 mg/dL (9-20); Calcium 8.3 mg/dL (8.4-10.2); Hemolysis Index 5
[2020-07-18 14:21] LABS: BUN/Creatinine Ratio 11
--- NOTE | 2020-07-18 15:29 | Progress Note ---
Assessment and Plan Assessment and plan: --Acute cholecystitis Current Visit: Yes Status: Acute n.p.o. status, IV fluids, IV antibiotics Surgery following --Duodenitis Current Visit: Yes Status: Acute Pepcid 20 mg IV every 12 hours. Zofran 4 mg IV every 6 hours as needed. If needed will consult GI --Intractable nausea & vomiting Current Visit: Yes Status: Acute Treat underlying cause , n.p.o. , IV fluids Pain medications , antiemetics , IV Protonix GI following --Abdominal pain Current Visit: Yes Status: Acute Underlying cholecystitis , pain medications , Protonix Surgery following --Diabetes, type 1.5, uncontrolled, managed as type 2 Current Visit: Yes Status: Acute Accu-Cheks scale coverage ADA diet and insulin as needed --Methamphetamine abuse Current Visit: Yes Status: Acute We counseled r to quit recreational drug use -- DVT prophylaxis Current Visit: Yes Status: Acute Heparin 5000 units subcu every 8 hours Follow surgery evaluation recommendation Closely monitor patient and adjust the management as needed Plan of care reviewed with the patient and his nurse 07/18/2020; patient admitted with acute cholecystitis Surgery evaluated, n.p.o. status History Interval history: Seen and examined the patient at the bedside Patient's chart and medications reviewed Patient has intractable nausea vomiting Vital signs noted Hospitalist Physical - Constitutional Vitals: Temp Pulse Resp BP Pulse Ox 99.7 F H 96 H 18 147/100 97 07/18/20 10:52 07/18/20 10:52 07/18/20 10:52 07/18/20 10:52 07/18/20 10:52 General appearance: Present: no acute distress, well-nourished - EENT Eyes: Present: PERRL, EOM intact - Neck Neck: Present: supple, normal ROM - Respiratory Respiratory effort: normal Respiratory: bilateral: diminished, negative: rales, rhonchi, wheezing - Cardiovascular Rhythm: regular Heart Sounds: Present: S1 & S2 - Extremities Extremities: no ischemia, No edema - Abdominal General gastrointestinal: soft, tender, normal bowel sounds - Integumentary Integumentary: Present: clear, warm - Psychiatric Psychiatric: appropriate mood/affect, cooperative - Neurologic Neurologic: CNII-XII intact, moves all extremities HEART Score - HEART Score EKG: Normal Age: < 45 Risk factors: 1-2 risk factors Troponin: Troponin T < 0.010 ng/mL (0.00-0.029) 07/18/20 04:05 Troponin: < normal limit - Critical Actions Critical Actions: 0-3 pts:0.9-1.7%risk of adverse cardiac event.Candidate for discharge Results - Labs CBC & Chem 7: 07/18/20 04:05 07/18/20 13:29 Labs: Laboratory Last Values WBC 38.1 K/mm3 (4.5-11.0) H 07/18/20 04:05 RBC 4.26 M/mm3 (3.65-5.03) 07/18/20 04:05 Hgb 12.7 gm/dl (11.8-15.2) 07/18/20 04:05 Hct 36.5 % (35.5-45.6) 07/18/20 04:05 MCV 86 fl (84-94) 07/18/20 04:05 MCH 30 pg (28-32) 07/18/20 04:05 MCHC 35 % (32-34) H 07/18/20 04:05 RDW 14.9 % (13.2-15.2) 07/18/20 04:05 Plt Count 375 K/mm3 (140-440) 07/18/20 04:05 Add Manual Diff Complete 07/18/20 04:05 Total Counted 100 07/18/20 04:05 Seg Neuts % (Manual) 85.0 % (40.0-70.0) H 07/18/20 04:05 Band Neutrophils % 4.0 % 07/18/20 04:05 Lymphocytes % (Manual) 2.0 % (13.4-35.0) L 07/18/20 04:05 Monocytes % (Manual) 7.0 % (0.0-7.3) 07/18/20 04:05 Metamyelocytes % 2.0 % 07/18/20 04:05 Nucleated RBC % Not Reportable 07/18/20 04:05 Seg Neutrophils # Man 32.4 K/mm3 (1.8-7.7) H 07/18/20 04:05 Band Neutrophils # 1.5 K/mm3 07/18/20 04:05 Lymphocytes # (Manual) 0.8 K/mm3 (1.2-5.4) L 07/18/20 04:05 Abs React Lymphs (Man) 0.0 K/mm3 07/18/20 04:05 Monocytes # (Manual) 2.7 K/mm3 (0.0-0.8) H 07/18/20 04:05 Eosinophils # (Manual) 0.0 K/mm3 (0.0-0.4) 07/18/20 04:05 Basophils # (Manual) 0.0 K/mm3 (0.0-0.1) 07/18/20 04:05 Metamyelocytes # 0.8 K/mm3 07/18/20 04:05 Myelocytes # 0.0 K/mm3 07/18/20 04:05 Promyelocytes # 0.0 K/mm3 07/18/20 04:05 Blast Cells # 0.0 K/mm3 07/18/20 04:05 WBC Morphology Not Reportable 07/18/20 04:05 Hypersegmented Neuts Not Reportable 07/18/20 04:05 Hyposegmented Neuts Not Reportable 07/18/20 04:05 Hypogranular Neuts Not Reportable 07/18/20 04:05 Smudge Cells Not Reportable 07/18/20 04:05 Toxic Granulation Not Reportable 07/18/20 04:05 Toxic Vacuolation Not Reportable 07/18/20 04:05 Dohle Bodies Not Reportable 07/18/20 04:05 Pelger-Huet Anomaly Not Reportable 07/18/20 04:05 Charlotte Rods Not Reportable 07/18/20 04:05 Platelet Estimate Consistent w auto 07/18/20 04:05 Clumped Platelets Not Reportable 07/18/20 04:05 Plt Clumps, EDTA Not Reportable 07/18/20 04:05 Large Platelets Not Reportable 07/18/20 04:05 Giant Platelets Not Reportable 07/18/20 04:05 Platelet Satelliting Not Reportable 07/18/20 04:05 Plt Morphology Comment Not Reportable 07/18/20 04:05 RBC Morphology Normal 07/18/20 04:05 Dimorphic RBCs Not Reportable 07/18/20 04:05 Polychromasia Not Reportable 07/18/20 04:05 Hypochromasia Not Reportable 07/18/20 04:05 Poikilocytosis Not Reportable 07/18/20 04:05 Anisocytosis Not Reportable 07/18/20 04:05 Microcytosis Not Reportable 07/18/20 04:05 Macrocytosis Not Reportable 07/18/20 04:05 Spherocytes Not Reportable 07/18/20 04:05 Pappenheimer Bodies Not Reportable 07/18/20 04:05 Sickle Cells Not Reportable 07/18/20 04:05 Target Cells Not Reportable 07/18/20 04:05 Tear Drop Cells Not Reportable 07/18/20 04:05 Ovalocytes Not Reportable 07/18/20 04:05 Helmet Cells Not Reportable 07/18/20 04:05 [place] Bodies Not Reportable 07/18/20 04:05 [place] Rings Not Reportable 07/18/20 04:05 [place] Cells Not Reportable 07/18/20 04:05 Bite Cells Not Reportable 07/18/20 04:05 Crenated Cell Not Reportable 07/18/20 04:05 Elliptocytes Not Reportable 07/18/20 04:05 Acanthocytes (Spur) Not Reportable 07/18/20 04:05 Rouleaux Not Reportable 07/18/20 04:05 Hemoglobin C Crystals Not Reportable 07/18/20 04:05 Schistocytes Not Reportable 07/18/20 04:05 Malaria parasites Not Reportable 07/18/20 04:05 Tony Bodies Not Reportable 07/18/20 04:05 Hem Pathologist Commnt No 07/18/20 04:05 Sodium 131 mmol/L (137-145) L 07/18/20 13:29 Potassium 4.1 mmol/L (3.6-5.0) 07/18/20 13:29 Chloride 95.6 mmol/L (98-107) L 07/18/20 13:29 Carbon Dioxide 22 mmol/L (22-30) 07/18/20 13:29 Anion Gap 18 mmol/L 07/18/20 13:29 BUN 8 mg/dL (9-20) L 07/18/20 13:29 Creatinine 0.7 mg/dL (0.8-1.3) L 07/18/20 13:29 Estimated GFR > 60 ml/min 07/18/20 13:29 BUN/Creatinine Ratio 11 % 07/18/20 13:29 Glucose 104 mg/dL (75-100) H 07/18/20 13:29 POC Glucose 137 mg/dL (70-105) H 07/18/20 06:14 Calcium 8.3 mg/dL (8.4-10.2) L 07/18/20 13:29 Total Bilirubin 2.70 mg/dL (0.1-1.2) H 07/18/20 13:29 AST 24 units/L (5-40) 07/18/20 13:29 ALT 20 units/L (7-56) 07/18/20 13:29 Alkaline Phosphatase 127 units/L (35-129) 07/18/20 13:29 Troponin T < 0.010 ng/mL (0.00-0.029) 07/18/20 04:05 Total Protein 6.6 g/dL (6.3-8.2) D 07/18/20 13:29 Albumin 2.9 g/dL (3.9-5) L 07/18/20 13:29 Albumin/Globulin Ratio 0.8 % 07/18/20 13:29 Lipase 23 units/L (13-60) 07/17/20 12:11 Bruno/IV: Voiding Method Urinal Active Medications - Current Medications Current Medications: Generic Name Dose Route Start Last Admin Trade Name Freq PRN Reason Stop Dose Admin Acetaminophen 650 mg 07/17/20 22:08 Acetaminophen 325 Mg Tab PO Q4H PRN Pain MILD(1-3)/Fever >100.5/CONRAD Albuterol/Ipratropium 1 ampul 07/18/20 02:00 07/18/20 13:32 Ipratropium/Albuterol Sulfate 3 Ml Ampul.Neb IH Not Given Q6HRT [facility] Aspirin 81 mg 07/18/20 10:00 Aspirin 81 Mg Tab Chew PO QDAY RUBINA Atorvastatin Calcium 40 mg 07/18/20 22:00 Atorvastatin 40 Mg Tab PO QHS RUBINA Dextrose 50 ml 07/17/20 22:22 Dextrose 50% In Water (25gm) 50 Ml Syringe IV Q30MIN PRN Hypoglycemia Protocol Famotidine 20 mg 07/18/20 10:00 07/18/20 10:34 Famotidine 20 Mg/2 Ml Inj IV Not Given BID [facility] Heparin Sodium (Porcine) 5,000 unit 07/18/20 06:00 07/18/20 12:45 Heparin 5,000 Unit/1 Ml Vial SUB-Q 5,000 unit Q8HR RUBINA Administration Hydralazine HCl 10 mg 07/17/20 22:21 Hydralazine 20 Mg/1 Ml Inj IV Q6H PRN htn Dextrose/Sodium Chloride 1,000 mls @ 100 mls/hr 07/17/20 23:00 07/18/20 00:57 D5/0.45ns IV 100 mls/hr DIRECT RUBINA Administration Piperacillin Sod/Tazobactam Sod 4.5 gm in 100 mls @ 200 mls/hr 07/18/20 03:00 07/18/20 12:44 Zosyn/Ns 4.5gm/100ml IV 200 mls/hr Q8H RUBINA Administration Protocol Insulin Human Lispro 0 unit 07/18/20 00:00 07/18/20 06:17 Insulin Lispro 100 Unit/Ml SUB-Q Not Given Q6HR RUBINA Protocol Morphine Sulfate 2 mg 07/17/20 22:08 07/18/20 12:44 Morphine 2 Mg/1 Ml Inj IV 2 mg Q4H PRN Administration Pain, Moderate (4-6) Nitroglycerin 0.4 mg 07/17/20 22:08 Nitroglycerin 0.4 Mg Tab Subl SL Q5M PRN Chest Pain Ondansetron HCl 4 mg 07/17/20 22:08 Ondansetron 4 Mg/2 Ml Inj IV Q8H PRN Nausea And Vomiting Sodium Chloride 10 ml 07/18/20 10:00 Sodium Chloride 0.9% 10 Ml Flush Syringe IV BID RUBINA Sodium Chloride 10 ml 07/17/20 22:08 Sodium Chloride 0.9% 10 Ml Flush Syringe IV PRN PRN LINE FLUSH Tramadol HCl 50 mg 07/17/20 22:08 Tramadol 50 Mg Tab PO Q6H PRN Pain, Moderate (4-6) Nutrition/Malnutrition Assess - Dietary Evaluation Nutrition/Malnutrition Findings: Nutrition Notes Start: 07/18/20 09:35 Freq: Status: Active Protocol: Document 07/18/20 09:35 LP (Rec: 07/18/20 09:38 LP [id number]) Nutrition Notes Need for Assessment generated from: MD Order Initial or Follow up Brief Note Current Diagnosis Diabetes Other Pertinent Diagnosis N/V, Meth abuse Current Diet NPO Labs/Tests Na 134 BG 123 Subjective/Other Information Consult for diet education. Unable to see pt at this time. Nutrition Intervention Follow-Up By: 07/20/20 Additional Comments Follow for diet education needs
[2020-07-18] MEDS: ASPIRIN 81 MG TAB CHEW PO SCH (15:45)
[2020-07-18] MEDS ORDERED: ALBUTEROL 2.5 MG/3 ML NEBU IH PRN (22:07)
[2020-07-19] MEDS: INSULIN LISPRO 100 UNIT/ML SUB-Q SCH ×4 (00:04→22:48)
[2020-07-19] MEDS: PIPERACIL/TAZOBACTA 4.5/NS 100 4.5 GM/100 ML VIAL IV SCH ×3 (03:35→21:25)
[2020-07-19] MEDS ORDERED: ACETAMINOPHEN 650 MG RECT SUPP PR PRN (04:29)
[2020-07-19] MEDS: MORPHINE 2 MG/1 ML INJ IV PRN ×5 (04:40→21:27)
[2020-07-19 04:47] LABS: Hematocrit 36.5 % (35.5-45.6); Hemoglobin 12.5 gm/dl (11.8-15.2); Mean Corpuscular HGB Conc 34 % (32-34); Mean Corpuscular Volume 86 fl (84-94); Platelet Count 343 K/mm3 (140-440); Red Blood Count 4.26 M/mm3 (3.65-5.03); Red Cell Distribution Width 14.9 % (13.2-15.2)
[2020-07-19] MEDS: HEPARIN 5,000 UNIT/1 ML VIAL SUB-Q SCH ×3 (05:02→21:25)
[2020-07-19 05:08] LABS: Alanine Aminotransferase 20 units/L (7-56); Albumin 3.1 g/dL (3.9-5); Blood Urea Nitrogen 7 mg/dL (9-20); Calcium 8.5 mg/dL (8.4-10.2); Hemolysis Index 1
[2020-07-19 05:33] LABS: BUN/Creatinine Ratio 10
[2020-07-19] MEDS: hydrALAZINE 20 MG/1 ML INJ IV PRN (07:39)
[2020-07-19] MEDS: ASPIRIN 81 MG TAB CHEW PO SCH ×2 (08:54→10:00)
[2020-07-19] MEDS: FAMOTIDINE 20 MG/2 ML INJ IV SCH ×3 (08:54→21:25)
[2020-07-19 11:17] LABS: Total Cells Counted 100
[2020-07-19 11:18] LABS: Platelet Estimate Consistent w Auto; RBC Morphology Normal
--- NOTE | 2020-07-19 13:58 | Progress Note ---
Assessment and Plan Assessment and plan: --Acute cholecystitis Current Visit: Yes Status: Acute n.p.o. status, IV fluids, IV antibiotics Possible lap cholecystectomy tomorrow Per surgeon --Duodenitis Current Visit: Yes Status: Acute Continue Pepcid 20 mg IV and Zofran as needed --Intractable nausea & vomiting Current Visit: Yes Status: Acute Treat underlying cause , n.p.o. , IV fluids Pain medications , antiemetics , IV Protonix --Abdominal pain Current Visit: Yes Status: Acute Underlying cholecystitis , pain medications , Protonix Surgery following --Diabetes, type 1.5, uncontrolled, managed as type 2 Current Visit: Yes Status: Acute Accu-Cheks scale coverage ADA diet and insulin as needed --Methamphetamine abuse Current Visit: Yes Status: Acute We counseled r to quit recreational drug use -- DVT prophylaxis Current Visit: Yes Status: Acute Heparin 5000 units subcu every 8 hours Closely monitor patient and adjust the management as needed Plan of care reviewed with the patient and his nurse 07/18/2020; patient admitted with acute cholecystitis Surgery evaluated, n.p.o. status 07/19/2020 continue n.p.o. Possible lap cholecystectomy tomorrow Per surgery History Interval history: I have seen and examined the patient at the bedside this morning Patient's chart and medications reviewed Admitted with abdominal pain possible cholecystitis N.p.o. status and IV fluids and IV antibiotics Patient continues to have intermittent abdominal pain Requesting some fluids Vital signs noted Hospitalist Physical - Constitutional Vitals: Temp Pulse Resp BP Pulse Ox 98.2 F 104 H 18 138/94 97 07/19/20 11:48 07/19/20 11:48 07/19/20 11:48 07/19/20 11:48 07/19/20 11:48 General appearance: Present: mild distress, well-nourished - EENT Eyes: Present: PERRL, EOM intact - Neck Neck: Present: supple, normal ROM - Respiratory Respiratory effort: normal Respiratory: bilateral: diminished, negative: rales, rhonchi, wheezing - Cardiovascular Rhythm: regular Heart Sounds: Present: S1 & S2 - Extremities Extremities: no ischemia, No edema - Abdominal General gastrointestinal: soft, tender (No guarding no rigidity), non-distended, normal bowel sounds - Integumentary Integumentary: Present: clear, warm - Psychiatric Psychiatric: appropriate mood/affect, cooperative - Neurologic Neurologic: CNII-XII intact HEART Score - HEART Score EKG: Normal Age: < 45 Risk factors: 1-2 risk factors Troponin: Troponin T < 0.010 ng/mL (0.00-0.029) 07/18/20 04:05 Troponin: < normal limit - Critical Actions Critical Actions: 0-3 pts:0.9-1.7%risk of adverse cardiac event.Candidate for discharge Results - Labs CBC & Chem 7: 07/19/20 04:08 07/19/20 04:08 Labs: Laboratory Last Values WBC 25.8 K/mm3 (4.5-11.0) H 07/19/20 04:08 RBC 4.26 M/mm3 (3.65-5.03) 07/19/20 04:08 Hgb 12.5 gm/dl (11.8-15.2) 07/19/20 04:08 Hct 36.5 % (35.5-45.6) 07/19/20 04:08 MCV 86 fl (84-94) 07/19/20 04:08 MCH 29 pg (28-32) 07/19/20 04:08 MCHC 34 % (32-34) 07/19/20 04:08 RDW 14.9 % (13.2-15.2) 07/19/20 04:08 Plt Count 343 K/mm3 (140-440) 07/19/20 04:08 Add Manual Diff Complete 07/19/20 04:08 Total Counted 100 07/19/20 04:08 Seg Neuts % (Manual) 86.0 % (40.0-70.0) H 07/19/20 04:08 Band Neutrophils % 4.0 % 07/18/20 04:05 Lymphocytes % (Manual) 4.0 % (13.4-35.0) L 07/19/20 04:08 Reactive Lymphs % (Man) 1.0 % 07/19/20 04:08 Monocytes % (Manual) 8.0 % (0.0-7.3) H 07/19/20 04:08 Basophils % (Manual) 1.0 % (0.0-1.8) 07/19/20 04:08 Metamyelocytes % 2.0 % 07/18/20 04:05 Nucleated RBC % Not Reportable 07/19/20 04:08 Seg Neutrophils # Man 22.2 K/mm3 (1.8-7.7) H 07/19/20 04:08 Band Neutrophils # 0.0 K/mm3 07/19/20 04:08 Lymphocytes # (Manual) 1.0 K/mm3 (1.2-5.4) L 07/19/20 04:08 Abs React Lymphs (Man) 0.3 K/mm3 07/19/20 04:08 Monocytes # (Manual) 2.1 K/mm3 (0.0-0.8) H 07/19/20 04:08 Eosinophils # (Manual) 0.0 K/mm3 (0.0-0.4) 07/19/20 04:08 Basophils # (Manual) 0.3 K/mm3 (0.0-0.1) H 07/19/20 04:08 Metamyelocytes # 0.0 K/mm3 07/19/20 04:08 Myelocytes # 0.0 K/mm3 07/19/20 04:08 Promyelocytes # 0.0 K/mm3 07/19/20 04:08 Blast Cells # 0.0 K/mm3 07/19/20 04:08 WBC Morphology Not Reportable 07/19/20 04:08 Hypersegmented Neuts Not Reportable 07/19/20 04:08 Hyposegmented Neuts Not Reportable 07/19/20 04:08 Hypogranular Neuts Not Reportable 07/19/20 04:08 Smudge Cells Not Reportable 07/19/20 04:08 Toxic Granulation Not Reportable 07/19/20 04:08 Toxic Vacuolation Not Reportable 07/19/20 04:08 Dohle Bodies Not Reportable 07/19/20 04:08 Pelger-Huet Anomaly Not Reportable 07/19/20 04:08 [place] Rods Not Reportable 07/19/20 04:08 Platelet Estimate Consistent w auto 07/19/20 04:08 Clumped Platelets Not Reportable 07/19/20 04:08 Plt Clumps, EDTA Not Reportable 07/19/20 04:08 Large Platelets Not Reportable 07/19/20 04:08 Giant Platelets Not Reportable 07/19/20 04:08 Platelet Satelliting Not Reportable 07/19/20 04:08 Plt Morphology Comment Not Reportable 07/19/20 04:08 RBC Morphology Normal 07/19/20 04:08 Dimorphic RBCs Not Reportable 07/19/20 04:08 Polychromasia Not Reportable 07/19/20 04:08 Hypochromasia Not Reportable 07/19/20 04:08 Poikilocytosis Not Reportable 07/19/20 04:08 Anisocytosis Not Reportable 07/19/20 04:08 Microcytosis Not Reportable 07/19/20 04:08 Macrocytosis Not Reportable 07/19/20 04:08 Spherocytes Not Reportable 07/19/20 04:08 Pappenheimer Bodies Not Reportable 07/19/20 04:08 Sickle Cells Not Reportable 07/19/20 04:08 Target Cells Not Reportable 07/19/20 04:08 Tear Drop Cells Not Reportable 07/19/20 04:08 Ovalocytes Not Reportable 07/19/20 04:08 Helmet Cells Not Reportable 07/19/20 04:08 [place] Bodies Not Reportable 07/19/20 04:08 [place] Rings Not Reportable 07/19/20 04:08 [place] Cells Not Reportable 07/19/20 04:08 Bite Cells Not Reportable 07/19/20 04:08 Crenated Cell Not Reportable 07/19/20 04:08 Elliptocytes Not Reportable 07/19/20 04:08 Acanthocytes (Spur) Not Reportable 07/19/20 04:08 Rouleaux Not Reportable 07/19/20 04:08 Hemoglobin C Crystals Not Reportable 07/19/20 04:08 Schistocytes Not Reportable 07/19/20 04:08 Malaria parasites Not Reportable 07/19/20 04:08 Tony Bodies Not Reportable 07/19/20 04:08 Hem Pathologist Commnt No 07/19/20 04:08 Sodium 131 mmol/L (137-145) L 07/19/20 04:08 Potassium 4.0 mmol/L (3.6-5.0) 07/19/20 04:08 Chloride 94.6 mmol/L (98-107) L 07/19/20 04:08 Carbon Dioxide 24 mmol/L (22-30) 07/19/20 04:08 Anion Gap 16 mmol/L 07/19/20 04:08 BUN 7 mg/dL (9-20) L 07/19/20 04:08 Creatinine 0.7 mg/dL (0.8-1.3) L 07/19/20 04:08 Estimated GFR > 60 ml/min 07/19/20 04:08 BUN/Creatinine Ratio 10 % 07/19/20 04:08 Glucose 99 mg/dL (75-100) 07/19/20 04:08 POC Glucose 94 mg/dL (70-105) 07/19/20 11:50 Calcium 8.5 mg/dL (8.4-10.2) 07/19/20 04:08 Total Bilirubin 4.30 mg/dL (0.1-1.2) H 07/19/20 04:08 AST 20 units/L (5-40) 07/19/20 04:08 ALT 20 units/L (7-56) 07/19/20 04:08 Alkaline Phosphatase 160 units/L (35-129) H 07/19/20 04:08 Troponin T < 0.010 ng/mL (0.00-0.029) 07/18/20 04:05 Total Protein 6.9 g/dL (6.3-8.2) 07/19/20 04:08 Albumin 3.1 g/dL (3.9-5) L 07/19/20 04:08 Albumin/Globulin Ratio 0.8 % 07/19/20 04:08 Lipase 23 units/L (13-60) 07/17/20 12:11 Bruno/IV: Voiding Method Urinal Active Medications - Current Medications Current Medications: Generic Name Dose Route Start Last Admin Trade Name Freq PRN Reason Stop Dose Admin Acetaminophen 650 mg 07/17/20 22:08 Acetaminophen 325 Mg Tab PO Q4H PRN Pain MILD(1-3)/Fever >100.5/CONRAD Acetaminophen 650 mg 07/19/20 04:29 07/19/20 04:40 Acetaminophen 650 Mg Rect Supp [place] 650 mg Q4H PRN Administration Pain, Mild (1-3) Albuterol 2.5 mg 07/18/20 22:07 Albuterol 2.5 Mg/3 Ml Nebu IH Q4HRT PRN Shortness Of Breath Aspirin 81 mg 07/18/20 10:00 07/19/20 10:00 Aspirin 81 Mg Tab Chew PO Not Given QDAY [facility] Atorvastatin Calcium 40 mg 07/18/20 22:00 07/18/20 22:58 Atorvastatin 40 Mg Tab PO Not Given QHS [facility] Dextrose 50 ml 07/17/20 22:22 Dextrose 50% In Water (25gm) 50 Ml Syringe IV Q30MIN PRN Hypoglycemia Protocol Famotidine 20 mg 07/18/20 10:00 07/19/20 12:05 Famotidine 20 Mg/2 Ml Inj IV Not Given BID [facility] Heparin Sodium (Porcine) 5,000 unit 07/18/20 06:00 07/19/20 05:02 Heparin 5,000 Unit/1 Ml Vial SUB-Q 5,000 unit Q8HR RUBINA Administration Hydralazine HCl 10 mg 07/17/20 22:21 07/19/20 07:39 Hydralazine 20 Mg/1 Ml Inj IV 10 mg Q6H PRN Administration htn Dextrose/Sodium Chloride 1,000 mls @ 100 mls/hr 07/17/20 23:00 07/18/20 22:55 D5/0.45ns IV 100 mls/hr DIRECT RUBINA Administration Piperacillin Sod/Tazobactam Sod 4.5 gm in 100 mls @ 200 mls/hr 07/18/20 03:00 07/19/20 12:10 Zosyn/Ns 4.5gm/100ml IV 100 mls/hr Q8H [facility] Administration Protocol Insulin Human Lispro 0 unit 07/18/20 00:00 07/19/20 12:07 Insulin Lispro 100 Unit/Ml SUB-Q Not Given Q6HR [facility] Protocol Morphine Sulfate 2 mg 07/17/20 22:08 07/19/20 13:04 Morphine 2 Mg/1 Ml Inj IV 2 mg Q4H PRN Administration Pain, Moderate (4-6) Nitroglycerin 0.4 mg 07/17/20 22:08 Nitroglycerin 0.4 Mg Tab Subl SL Q5M PRN Chest Pain Ondansetron HCl 4 mg 07/17/20 22:08 07/18/20 22:48 Ondansetron 4 Mg/2 Ml Inj IV 4 mg Q8H PRN Administration Nausea And Vomiting Sodium Chloride 10 ml 07/18/20 10:00 07/19/20 12:05 Sodium Chloride 0.9% 10 Ml Flush Syringe IV Not Given BID [facility] Sodium Chloride 10 ml 07/17/20 22:08 Sodium Chloride 0.9% 10 Ml Flush Syringe IV PRN PRN LINE FLUSH Tramadol HCl 50 mg 07/17/20 22:08 Tramadol 50 Mg Tab PO Q6H PRN Pain, Moderate (4-6) Nutrition/Malnutrition Assess - Dietary Evaluation Nutrition/Malnutrition Findings: Nutrition Notes Start: 07/18/20 09:35 Freq: Status: Active Protocol: Document 07/18/20 09:35 LP (Rec: 07/18/20 09:38 LP [id number]) Nutrition Notes Need for Assessment generated from: MD Order Initial or Follow up Brief Note Current Diagnosis Diabetes Other Pertinent Diagnosis N/V, Meth abuse Current Diet NPO Labs/Tests Na 134 BG 123 Subjective/Other Information Consult for diet education. Unable to see pt at this time. Nutrition Intervention Follow-Up By: 07/20/20 Additional Comments Follow for diet education needs
--- NOTE | 2020-07-19 20:27 | Progress Note ---
Assessment and Plan - Patient Problems (1) Right upper quadrant pain Current Visit: Yes Status: Acute Plan to address problem: 1) MRCP tomorrow 2) Lap mary after MRCP Subjective Date of service: 07/19/20 Patient Reports: Positive: no new complaints, feels better Objective Vital Signs - 12hr 07/19/20 07/19/20 07/19/20 09:04 11:48 15:58 Temperature 98.2 F 99.5 F Pulse Rate 104 H 110 H Respiratory 18 16 Rate Blood Pressure 138/94 126/89 O2 Sat by Pulse 95 97 96 Oximetry 07/19/20 07/19/20 19:01 20:16 Temperature 99.9 F H Pulse Rate 107 H Respiratory 18 Rate Blood Pressure 126/90 O2 Sat by Pulse 96 96 Oximetry - Abdomen soft, bowel sounds hypoactive (Mo), other (Mild-moderate RUQ tenderness without rebound or guarding.) - Labs 07/19/20 04:08 07/19/20 04:08 Diabetes panel 07/19/20 Range/Units 04:08 Sodium 131 L (137-145) mmol/L Potassium 4.0 (3.6-5.0) mmol/L Chloride 94.6 L (98-107) mmol/L Carbon Dioxide 24 (22-30) mmol/L BUN 7 L (9-20) mg/dL Creatinine 0.7 L (0.8-1.3) mg/dL Glucose 99 (75-100) mg/dL Calcium 8.5 (8.4-10.2) mg/dL AST 20 (5-40) units/L ALT 20 (7-56) units/L Alkaline Phosphatase 160 H (35-129) units/L Total Protein 6.9 (6.3-8.2) g/dL Albumin 3.1 L (3.9-5) g/dL Calcium panel 07/19/20 Range/Units 04:08 Calcium 8.5 (8.4-10.2) mg/dL Albumin 3.1 L (3.9-5) g/dL Pituitary panel 07/19/20 Range/Units 04:08 Sodium 131 L (137-145) mmol/L Potassium 4.0 (3.6-5.0) mmol/L Chloride 94.6 L (98-107) mmol/L Carbon Dioxide 24 (22-30) mmol/L BUN 7 L (9-20) mg/dL Creatinine 0.7 L (0.8-1.3) mg/dL Glucose 99 (75-100) mg/dL Calcium 8.5 (8.4-10.2) mg/dL Adrenal panel 07/19/20 Range/Units 04:08 Sodium 131 L (137-145) mmol/L Potassium 4.0 (3.6-5.0) mmol/L Chloride 94.6 L (98-107) mmol/L Carbon Dioxide 24 (22-30) mmol/L BUN 7 L (9-20) mg/dL Creatinine 0.7 L (0.8-1.3) mg/dL Glucose 99 (75-100) mg/dL Calcium 8.5 (8.4-10.2) mg/dL Total Bilirubin 4.30 H (0.1-1.2) mg/dL AST 20 (5-40) units/L ALT 20 (7-56) units/L Alkaline Phosphatase 160 H (35-129) units/L Total Protein 6.9 (6.3-8.2) g/dL Albumin 3.1 L (3.9-5) g/dL - Imaging US - abdomen: report reviewed
[2020-07-19] MEDS: D5W/0.45% NACL 1,000 ML IV SCH (23:10)
[2020-07-20] MEDS: INSULIN LISPRO 100 UNIT/ML SUB-Q SCH ×4 (00:31→18:00)
[2020-07-20] MEDS: MORPHINE 2 MG/1 ML INJ IV PRN ×4 (01:46→20:17)
[2020-07-20] MEDS: PIPERACIL/TAZOBACTA 4.5/NS 100 4.5 GM/100 ML VIAL IV SCH ×3 (04:03→20:17)
[2020-07-20 04:30] LABS: Hematocrit 33.6 % (35.5-45.6); Hemoglobin 11.6 gm/dl (11.8-15.2); Mean Corpuscular HGB Conc 35 % (32-34); Mean Corpuscular Volume 85 fl (84-94); Platelet Count 376 K/mm3 (140-440); Red Blood Count 3.97 M/mm3 (3.65-5.03); Red Cell Distribution Width 14.8 % (13.2-15.2)
[2020-07-20 04:58] LABS: Alanine Aminotransferase 22 units/L (7-56); Albumin 3.2 g/dL (3.9-5); BUN/Creatinine Ratio 14; Blood Urea Nitrogen 10 mg/dL (9-20); Calcium 8.9 mg/dL (8.4-10.2); Hemolysis Index 0
[2020-07-20] MEDS: HEPARIN 5,000 UNIT/1 ML VIAL SUB-Q SCH ×3 (05:37→22:50)
[2020-07-20 06:30] LABS: Anisocytosis 1+; Monocytes % (Manual) 4.5 % (0.0-7.3); Platelet Estimate Consistent w Auto; Total Cells Counted 200
--- NOTE | 2020-07-20 08:52 | Progress Note ---
Assessment and Plan Assessment and plan: MRCP today followed by possible lap cholecystectomy per surgery --Acute cholecystitis Current Visit: Yes Status: Acute n.p.o. status, IV fluids, IV antibiotics MRCP and possible lap cholecystectomy tomorrow Surgery following --Duodenitis Current Visit: Yes Status: Acute Continue Pepcid 20 mg IV and Zofran as needed --Intractable nausea & vomiting Current Visit: Yes Status: Acute Treat underlying cause , n.p.o. , IV fluids Pain medications , antiemetics , IV Protonix --Abdominal pain Current Visit: Yes Status: Acute Underlying cholecystitis , pain medications , Protonix Surgery following --Diabetes, type 1.5, uncontrolled, managed as type 2 Current Visit: Yes Status: Acute Accu-Cheks scale coverage ADA diet and insulin as needed --Methamphetamine abuse Current Visit: Yes Status: Acute We counseled r to quit recreational drug use -- DVT prophylaxis Current Visit: Yes Status: Acute Heparin 5000 units subcu every 8 hours Closely monitor patient and adjust the management as needed Plan of care reviewed with the patient and his nurse 07/18/2020; patient admitted with acute cholecystitis Surgery evaluated, n.p.o. status 07/19/2020 continue n.p.o. Possible lap cholecystectomy tomorrow Per surgery 07/20/2020; MRCP today followed by possible lap cholecystectomy Surgery following History Interval history: I have seen and examined the patient at the bedside this morning Patient's chart and medications reviewed Surgery recommended MRCP followed by possible lap cholecystectomy today Patient continues to have abdominal pain, no nausea vomiting Vital signs reviewed Hospitalist Physical - Constitutional Vitals: Temp Pulse Resp BP Pulse Ox 98.6 F 88 18 125/89 95 07/20/20 07:12 07/20/20 07:12 07/20/20 07:12 07/20/20 07:12 07/20/20 07:12 General appearance: Present: no acute distress, well-nourished - EENT Eyes: Present: PERRL, EOM intact - Neck Neck: Present: supple, normal ROM - Respiratory Respiratory effort: normal Respiratory: bilateral: diminished, negative: rales, rhonchi, wheezing - Cardiovascular Rhythm: regular Heart Sounds: Present: S1 & S2 - Extremities Extremities: no ischemia, No edema - Abdominal General gastrointestinal: soft, tender (No guarding no rigidity), non-distended, normal bowel sounds - Integumentary Integumentary: Present: clear, warm - Psychiatric Psychiatric: appropriate mood/affect, cooperative - Neurologic Neurologic: moves all extremities HEART Score - HEART Score EKG: Normal Age: < 45 Risk factors: 1-2 risk factors Troponin: Troponin T < 0.010 ng/mL (0.00-0.029) 07/18/20 04:05 Troponin: < normal limit - Critical Actions Critical Actions: 0-3 pts:0.9-1.7%risk of adverse cardiac event.Candidate for discharge Results - Labs CBC & Chem 7: 07/20/20 04:06 07/20/20 04:06 Labs: Laboratory Last Values WBC 21.0 K/mm3 (4.5-11.0) H 07/20/20 04:06 RBC 3.97 M/mm3 (3.65-5.03) 07/20/20 04:06 Hgb 11.6 gm/dl (11.8-15.2) L 07/20/20 04:06 Hct 33.6 % (35.5-45.6) L 07/20/20 04:06 MCV 85 fl (84-94) 07/20/20 04:06 MCH 29 pg (28-32) 07/20/20 04:06 MCHC 35 % (32-34) H 07/20/20 04:06 RDW 14.8 % (13.2-15.2) 07/20/20 04:06 Plt Count 376 K/mm3 (140-440) 07/20/20 04:06 Add Manual Diff Complete 07/20/20 04:06 Total Counted 200 07/20/20 04:06 Seg Neuts % (Manual) 89.0 % (40.0-70.0) H 07/20/20 04:06 Band Neutrophils % 4.0 % 07/18/20 04:05 Lymphocytes % (Manual) 6.5 % (13.4-35.0) L 07/20/20 04:06 Reactive Lymphs % (Man) 1.0 % 07/19/20 04:08 Monocytes % (Manual) 4.5 % (0.0-7.3) 07/20/20 04:06 Basophils % (Manual) 1.0 % (0.0-1.8) 07/19/20 04:08 Metamyelocytes % 2.0 % 07/18/20 04:05 Nucleated RBC % Not Reportable 07/20/20 04:06 Seg Neutrophils # Man 18.7 K/mm3 (1.8-7.7) H 07/20/20 04:06 Band Neutrophils # 0.0 K/mm3 07/20/20 04:06 Lymphocytes # (Manual) 1.4 K/mm3 (1.2-5.4) 07/20/20 04:06 Abs React Lymphs (Man) 0.0 K/mm3 07/20/20 04:06 Monocytes # (Manual) 0.9 K/mm3 (0.0-0.8) H 07/20/20 04:06 Eosinophils # (Manual) 0.0 K/mm3 (0.0-0.4) 07/20/20 04:06 Basophils # (Manual) 0.0 K/mm3 (0.0-0.1) 07/20/20 04:06 Metamyelocytes # 0.0 K/mm3 07/20/20 04:06 Myelocytes # 0.0 K/mm3 07/20/20 04:06 Promyelocytes # 0.0 K/mm3 07/20/20 04:06 Blast Cells # 0.0 K/mm3 07/20/20 04:06 WBC Morphology Not Reportable 07/20/20 04:06 Hypersegmented Neuts Not Reportable 07/20/20 04:06 Hyposegmented Neuts Not Reportable 07/20/20 04:06 Hypogranular Neuts Not Reportable 07/20/20 04:06 Smudge Cells Not Reportable 07/20/20 04:06 Toxic Granulation Not Reportable 07/20/20 04:06 Toxic Vacuolation Not Reportable 07/20/20 04:06 Dohle Bodies Not Reportable 07/20/20 04:06 Pelger-Huet Anomaly Not Reportable 07/20/20 04:06 Charlotte Rods Not Reportable 07/20/20 04:06 Platelet Estimate Consistent w auto 07/20/20 04:06 Clumped Platelets Not Reportable 07/20/20 04:06 Plt Clumps, EDTA Not Reportable 07/20/20 04:06 Large Platelets Not Reportable 07/20/20 04:06 Giant Platelets Not Reportable 07/20/20 04:06 Platelet Satelliting Not Reportable 07/20/20 04:06 Plt Morphology Comment Not Reportable 07/20/20 04:06 RBC Morphology Not Reportable 07/20/20 04:06 Dimorphic RBCs Not Reportable 07/20/20 04:06 Polychromasia Not Reportable 07/20/20 04:06 Hypochromasia Not Reportable 07/20/20 04:06 Poikilocytosis Not Reportable 07/20/20 04:06 Anisocytosis 1+ 07/20/20 04:06 Microcytosis Not Reportable 07/20/20 04:06 Macrocytosis Not Reportable 07/20/20 04:06 Spherocytes Not Reportable 07/20/20 04:06 Pappenheimer Bodies Not Reportable 07/20/20 04:06 Sickle Cells Not Reportable 07/20/20 04:06 Target Cells Not Reportable 07/20/20 04:06 Tear Drop Cells Not Reportable 07/20/20 04:06 Ovalocytes Not Reportable 07/20/20 04:06 Helmet Cells Not Reportable 07/20/20 04:06 Campos-Echo Bodies Not Reportable 07/20/20 04:06 [place] Rings Not Reportable 07/20/20 04:06 [place] Cells Not Reportable 07/20/20 04:06 Bite Cells Not Reportable 07/20/20 04:06 Crenated Cell Not Reportable 07/20/20 04:06 Elliptocytes Not Reportable 07/20/20 04:06 Acanthocytes (Spur) Not Reportable 07/20/20 04:06 Rouleaux Not Reportable 07/20/20 04:06 Hemoglobin C Crystals Not Reportable 07/20/20 04:06 Schistocytes Not Reportable 07/20/20 04:06 Malaria parasites Not Reportable 07/20/20 04:06 Tony Bodies Not Reportable 07/20/20 04:06 Hem Pathologist Commnt No 07/20/20 04:06 Sodium 133 mmol/L (137-145) L 07/20/20 04:06 Potassium 3.9 mmol/L (3.6-5.0) 07/20/20 04:06 Chloride 97.3 mmol/L (98-107) L 07/20/20 04:06 Carbon Dioxide 25 mmol/L (22-30) 07/20/20 04:06 Anion Gap 15 mmol/L 07/20/20 04:06 BUN 10 mg/dL (9-20) 07/20/20 04:06 Creatinine 0.7 mg/dL (0.8-1.3) L 07/20/20 04:06 Estimated GFR > 60 ml/min 07/20/20 04:06 BUN/Creatinine Ratio 14 % 07/20/20 04:06 Glucose 102 mg/dL (75-100) H 07/20/20 04:06 POC Glucose 101 mg/dL (70-105) 07/19/20 23:06 Calcium 8.9 mg/dL (8.4-10.2) 07/20/20 04:06 Total Bilirubin 3.40 mg/dL (0.1-1.2) H 07/20/20 04:06 AST 21 units/L (5-40) 07/20/20 04:06 ALT 22 units/L (7-56) 07/20/20 04:06 Alkaline Phosphatase 174 units/L (35-129) H 07/20/20 04:06 Troponin T < 0.010 ng/mL (0.00-0.029) 07/18/20 04:05 Total Protein 7.0 g/dL (6.3-8.2) 07/20/20 04:06 Albumin 3.2 g/dL (3.9-5) L 07/20/20 04:06 Albumin/Globulin Ratio 0.8 % 07/20/20 04:06 Lipase 23 units/L (13-60) 07/17/20 12:11 Bruno/IV: Voiding Method Toilet Active Medications - Current Medications Current Medications: Generic Name Dose Route Start Last Admin Trade Name Freq PRN Reason Stop Dose Admin Acetaminophen 650 mg 07/17/20 22:08 Acetaminophen 325 Mg Tab PO Q4H PRN Pain MILD(1-3)/Fever >100.5/CONRAD Acetaminophen 650 mg 07/19/20 04:29 07/19/20 04:40 Acetaminophen 650 Mg Rect Supp [place] 650 mg Q4H PRN Administration Pain, Mild (1-3) Albuterol 2.5 mg 07/18/20 22:07 Albuterol 2.5 Mg/3 Ml Nebu IH Q4HRT PRN Shortness Of Breath Aspirin 81 mg 07/18/20 10:00 07/19/20 10:00 Aspirin 81 Mg Tab Chew PO Not Given QDAY RUBINA Atorvastatin Calcium 40 mg 07/18/20 22:00 07/19/20 21:25 Atorvastatin 40 Mg Tab PO 40 mg QHS RUBINA Administration Dextrose 50 ml 07/17/20 22:22 Dextrose 50% In Water (25gm) 50 Ml Syringe IV Q30MIN PRN Hypoglycemia Protocol Famotidine 20 mg 07/18/20 10:00 07/19/20 21:25 Famotidine 20 Mg/2 Ml Inj IV 20 mg BID RUBINA Administration Heparin Sodium (Porcine) 5,000 unit 07/18/20 06:00 07/20/20 05:37 Heparin 5,000 Unit/1 Ml Vial SUB-Q 5,000 unit Q8HR RUBINA Administration Hydralazine HCl 10 mg 07/17/20 22:21 07/19/20 07:39 Hydralazine 20 Mg/1 Ml Inj IV 10 mg Q6H PRN Administration htn Dextrose/Sodium Chloride 1,000 mls @ 100 mls/hr 07/17/20 23:00 07/19/20 23:10 D5/0.45ns IV 100 mls/hr DIRECT RUBINA Administration Piperacillin Sod/Tazobactam Sod 4.5 gm in 100 mls @ 200 mls/hr 07/18/20 03:00 07/20/20 04:03 Zosyn/Ns 4.5gm/100ml IV 100 mls/hr Q8H RUBINA Administration Protocol Insulin Human Lispro 0 unit 07/18/20 00:00 07/20/20 05:45 Insulin Lispro 100 Unit/Ml SUB-Q Not Given Q6HR [facility] Protocol Morphine Sulfate 2 mg 07/17/20 22:08 07/20/20 05:36 Morphine 2 Mg/1 Ml Inj IV 2 mg Q4H PRN Administration Pain, Moderate (4-6) Nitroglycerin 0.4 mg 07/17/20 22:08 Nitroglycerin 0.4 Mg Tab Subl SL Q5M PRN Chest Pain Ondansetron HCl 4 mg 07/17/20 22:08 07/18/20 22:48 Ondansetron 4 Mg/2 Ml Inj IV 4 mg Q8H PRN Administration Nausea And Vomiting Sodium Chloride 10 ml 07/18/20 10:00 07/19/20 21:28 Sodium Chloride 0.9% 10 Ml Flush Syringe IV 10 ml BID RUBINA Administration Sodium Chloride 10 ml 07/17/20 22:08 Sodium Chloride 0.9% 10 Ml Flush Syringe IV PRN PRN LINE FLUSH Tramadol HCl 50 mg 07/17/20 22:08 Tramadol 50 Mg Tab PO Q6H PRN Pain, Moderate (4-6) Nutrition/Malnutrition Assess - Dietary Evaluation Nutrition/Malnutrition Findings: Nutrition Notes Start: 07/18/20 09:35 Freq: Status: Active Protocol: Document 07/18/20 09:35 LP (Rec: 07/18/20 09:38 LP [id number]) Nutrition Notes Need for Assessment generated from: MD Order Initial or Follow up Brief Note Current Diagnosis Diabetes Other Pertinent Diagnosis N/V, Meth abuse Current Diet NPO Labs/Tests Na 134 BG 123 Subjective/Other Information Consult for diet education. Unable to see pt at this time. Nutrition Intervention Follow-Up By: 07/20/20 Additional Comments Follow for diet education needs
--- NOTE | 2020-07-20 09:35 | Progress Note ---
Assessment and Plan - Patient Problems (1) Right upper quadrant pain Current Visit: Yes Status: Acute Plan to address problem: 1) Awaiting MRCP 2) Lap mary if MRCP is negative. 3) ERCP followed by lap mary if MRCP is positive. Subjective Date of service: 07/20/20 Patient Reports: Positive: no new complaints, feels better, still having pain, pain is less Objective Vital Signs - 12hr 07/19/20 07/20/20 07/20/20 23:04 05:43 07:12 Temperature 98.8 F 99.3 F 98.6 F Pulse Rate 99 H 92 H 88 Respiratory 18 18 18 Rate Blood Pressure 121/84 136/88 125/89 O2 Sat by Pulse 95 94 95 Oximetry - Abdomen soft, bowel sounds hypoactive (Mild epigastric tenderness without rebound or guarding.) - Labs 07/20/20 04:06 07/20/20 04:06 Diabetes panel 07/20/20 Range/Units 04:06 Sodium 133 L (137-145) mmol/L Potassium 3.9 (3.6-5.0) mmol/L Chloride 97.3 L (98-107) mmol/L Carbon Dioxide 25 (22-30) mmol/L BUN 10 (9-20) mg/dL Creatinine 0.7 L (0.8-1.3) mg/dL Glucose 102 H (75-100) mg/dL Calcium 8.9 (8.4-10.2) mg/dL AST 21 (5-40) units/L ALT 22 (7-56) units/L Alkaline Phosphatase 174 H (35-129) units/L Total Protein 7.0 (6.3-8.2) g/dL Albumin 3.2 L (3.9-5) g/dL Calcium panel 07/20/20 Range/Units 04:06 Calcium 8.9 (8.4-10.2) mg/dL Albumin 3.2 L (3.9-5) g/dL Pituitary panel 07/20/20 Range/Units 04:06 Sodium 133 L (137-145) mmol/L Potassium 3.9 (3.6-5.0) mmol/L Chloride 97.3 L (98-107) mmol/L Carbon Dioxide 25 (22-30) mmol/L BUN 10 (9-20) mg/dL Creatinine 0.7 L (0.8-1.3) mg/dL Glucose 102 H (75-100) mg/dL Calcium 8.9 (8.4-10.2) mg/dL Adrenal panel 07/20/20 Range/Units 04:06 Sodium 133 L (137-145) mmol/L Potassium 3.9 (3.6-5.0) mmol/L Chloride 97.3 L (98-107) mmol/L Carbon Dioxide 25 (22-30) mmol/L BUN 10 (9-20) mg/dL Creatinine 0.7 L (0.8-1.3) mg/dL Glucose 102 H (75-100) mg/dL Calcium 8.9 (8.4-10.2) mg/dL Total Bilirubin 3.40 H (0.1-1.2) mg/dL AST 21 (5-40) units/L ALT 22 (7-56) units/L Alkaline Phosphatase 174 H (35-129) units/L Total Protein 7.0 (6.3-8.2) g/dL Albumin 3.2 L (3.9-5) g/dL
--- NOTE | 2020-07-20 10:58 | Magnetic Resonance Report ---
MR ABDOMEN MRCP INDICATION / CLINICAL INFORMATION: MAIN. TECHNIQUE: Multiplanar, multisequence MR images of the abdomen were obtained per MRCP protocol. COMPARISON: CT abdomen pelvis and ultrasound 07/17/2020 FINDINGS: Liver: Liver appears within normal limits. Gallbladder: Layering biliary sludge throughout the gallbladder. There is considerable wall thickenin g and edema measuring approximately 5 mm and moderate pericholecystic inflammatory change extending i nto the right upper quadrant peritoneal fat, similar when compared to 07/17/2020. Biliary ducts: No intrahepatic or extra hepatic biliary ductal dilation. No focal filling defects are identified in the common bile duct, however there is intermediate segment narrowing at the midportio n of the extrahepatic common bile duct. There is distal reconstitution and normal appearance as it co urses through the pancreatic head. Pancreas: Pancreas appears within normal limits. No pancreatic ductal dilation. Other: No significant abnormality identified within the spleen, kidneys, or adrenal glands. IMPRESSION: Biliary sludge with moderate gallbladder and pericholecystic inflammatory change suggestive of acute cholecystitis, similar when compared to 07/17/2020. No evidence of biliary obstruction. Signer Name: Bereket Vázquez MD Signed: 07/20/2020 10:53 AM Workstation Name: [id number]
[2020-07-20] MEDS: ASPIRIN 81 MG TAB CHEW PO SCH (11:02)
[2020-07-20] MEDS: FAMOTIDINE 20 MG/2 ML INJ IV SCH ×2 (11:02→22:50)
--- NOTE | 2020-07-20 11:37 | Electrocardiograph Report ---
[facility] Test Date: 2020-07-17 Test Time: 10:09:34 Pat Name: ARYA LORD Department: Room: B316 Gender: M Hat Measurer: JAKE : 1980 Requested By: ANGELICA HYATT Order Number: [id number] Reading MD: Eric Sylvester Measurements Intervals [place] Rate: 71 P: 38 [place]: 129 QRS: 74 QRSD: 92 T: 62 QT: 411 QTc: 447 Interpretive Statements Sinus rhythm No previous ECG available for comparison Electronically Signed On 07-20-2020 11:37:33 EDT by Eric Sylvester
--- NOTE | 2020-07-20 12:57 | Anesthesia Consultation ---
<SABRINA CHAUHAN - Last Filed: 07/20/20 12:52> Anesthesia Consult and Med Hx Date of service: 07/20/20 - Airway Anesthetic Teeth Evaluation: Good ROM Head & Neck: Adequate Mental/Hyoid Distance: Adequate Mallampati Class: Class I Intubation Access Assessment: Good - Pulmonary Exam CTA: Yes - Pre-Operative Health Status ASA Pre-Surgery Classification: ASA2, Emergency Proposed Anesthetic Plan: General - Pulmonary Hx Smoking: Yes (1 pack per day for 15 years) Hx Asthma: No Hx Respiratory Symptoms: No SOB: No COPD: No Hx Pneumonia: No Hx Sleep Apnea: No - Cardiovascular System Hx Hypertension: Yes Hx Heart Attack/AMI: No Hx Angina: No - Central Nervous System Hx Seizures: Yes (On account of DM (hypoglycemia)) CVA: No Hx Psychiatric Problems: Yes - Endocrine Hx Renal Disease: No Hx Liver Disease: No Hx Insulin Dependent Diabetes: No Hx Non-Insulin Dependent Diabetes: Yes Hx Thyroid Disease: No - Other Systems Hx Alcohol Use: Yes (Sparingly) Hx Substance Use: Yes (Methamphetamine and Marijuana) Hx Cancer: No Hx Obesity: No - Additional Comments Anesthesia Medical History Comments: Patient denied previous anesthesia complication. <LANI BOSCH - Last Filed: 07/20/20 14:34> Anesthesia Consult and Med Hx - Pre-Operative Health Status ASA Pre-Surgery Classification: ASA3 Proposed Anesthetic Plan: General - Pulmonary Hx Smoking: Yes (15pk yr hx) - Cardiovascular System Hx Hypertension: Yes - Endocrine Hx Non-Insulin Dependent Diabetes: Yes - Other Systems Hx Substance Use: Yes (THC, methamphetamine (last use day before admission))
--- NOTE | 2020-07-20 13:00 | Anesthesia Day of Surgery ---
Anesthesia Day of Surgery - Day of Surgery Patient Examined: Yes Patient H&P Reviewed: Yes Patient is NPO: Yes Beta Blockers: No Cardiac Clearance: No Pulmonary Clearance: No Kayode's Test: N/A
[2020-07-20] MEDS ORDERED: BUPIVACAINE/PF (0.25%) 2.5 MG/ML 30 ML VIAL INFILTRATI ONE ×2 (13:50→14:48)
[2020-07-20] MEDS ORDERED: propofoL 200 MG/20 ML VIAL IV ONE (13:59)
[2020-07-20] MEDS ORDERED: HYDROmorphone 1 MG/1 ML INJ ONE (13:59)
[2020-07-20] MEDS ORDERED: LIDOCAINE MPF (2%) 20 MG/1 ML VIAL 5 ML ONE (14:00)
[2020-07-20] MEDS ORDERED: SUCCINYLCHOLINE CHLORIDE 200 MG/10 ML INJ MDV ONE (14:02)
[2020-07-20] MEDS ORDERED: ROCURONIUM 50 MG/5 ML INJ IV ONE (14:02)
[2020-07-20] MEDS ORDERED: HYDROmorphone 1 MG/1 ML INJ IV PRN (14:34)
[2020-07-20] MEDS ORDERED: ONDANSETRON 4 MG/2 ML INJ IV PRN (14:34)
[2020-07-20] MEDS ORDERED: SODIUM CHLORIDE 0.9% 1000 ML 2,000 ML ONE (16:02)
[2020-07-20] MEDS ORDERED: NEOSTIGMINE 10MG/10 ML INJ MDV ONE (16:27)
[2020-07-20] MEDS ORDERED: ONDANSETRON 4 MG/2 ML INJ ONE (16:27)
[2020-07-20] MEDS ORDERED: GLYCOPYRROLATE 0.4 MG/2 ML INJ ONE (16:27)
[2020-07-20] MEDS ORDERED: SODIUM CHLORIDE 0.9% IRR 1,500 ML BOTTLE IR ONE (16:36)
[2020-07-20] MEDS ORDERED: SODIUM CHLORIDE 0.9% IRRIG SOLN 2000 ML IR ONE (16:36)
--- NOTE | 2020-07-20 16:57 | Procedure Note ---
Date of procedure: 07/20/20 Pre-op diagnosis: acute cholecystitis Post-op diagnosis: same Procedure: Laparoscopic cholecystectomy Description of procedure: Pt was placed supine on the OR table. GETA was administered. Abdomen was prepped and draped. Proposed trocar sites were infi ltrated with 10 ml of 0.5% Marcaine. A small infraumbilical incision was made, linea alba incised and the peritoneal cavity entered. A Pasha port was inserted into the peritoneal cavity and pneumoperitoneum established. 10 mm subxiphoid, 5 mm RUQ and 5 mm right lateral ports were inserted into the peritoneal cavity under direct vision without incident. Pt was placed head and right side up. The gallbladder was covered with omental adhesions. The omental adhesions were bluntly lysed. The gallbladder was tense, markedly inflamed in portions and gangrenous in other portions. 20 ml of gallbladder fluid was aspirated from the gallbladder. Fundus of the gallbladder was grasped and was retracted cephalad. The neck of the gallbladder was dissected out and the cystic duct and artery skeletonized. The critical view of safety was obtained. Cyst artery and duct were doubly clipped and divided. The gallbladder was dissected off of it's hepatic fossa with blunt and Bovie dissection. Ga llbladder was placed in an endobag and the endobag removed via the infraumbilical fascial defect. A 10 mm BARBARA drain was then placed in the subhepatic space b/o the degree of inflammation and oozing from the gallbladder bed. The BARBARA was brought out the right lateral trocar wound and was secured to the skin with a 2-0 silk suture. The remaining upper abdominal ports were removed and there was no bleeding from the port entry sites under low pressure. Pasha port was removed and the pneumoperitoneum released. The infraumbilical fascial defect was closed with 2 interrupted sutures of 2-0 Vicryl. Skin incisions were closed with running subcuticular sutures of 4-0 Monocryl. Skin glue was applied to all incisions except the drain exit site which was dressed with a slitted gauze and tape. Pt tolerated the procedure well. Pt was extubated in the OR and was taken to PACU in stable condition. Findings: Gallbladder was gangrenous. Anesthesia: GETA Surgeon: VIRA GREENE Estimated blood loss: 50-100ml Pathology: list (gallbladder) Specimen disposition: to lab Condition: stable Disposition: PACU
--- NOTE | 2020-07-20 17:32 | Post Anesthesia Evaluation ---
- Post Anesthesia Evaluation Patient Participated: Yes Airway Patent: Yes Stable Respiratory Function: Yes Nausea/Vomiting: No Temp > 96.8F: Yes Pain Manageable: Yes Adequeate Hydration: Yes Anesthesia Complications: No
[2020-07-21] MEDS: MORPHINE 2 MG/1 ML INJ IV PRN ×6 (00:49→23:06)
[2020-07-21] MEDS: D5W/0.45% NACL 1,000 ML IV SCH ×2 (00:50→10:58)
[2020-07-21] MEDS: INSULIN LISPRO 100 UNIT/ML SUB-Q SCH ×4 (00:54→18:04)
[2020-07-21] MEDS: PIPERACIL/TAZOBACTA 4.5/NS 100 4.5 GM/100 ML VIAL IV SCH ×3 (03:29→23:01)
[2020-07-21] MEDS: HEPARIN 5,000 UNIT/1 ML VIAL SUB-Q SCH ×3 (05:09→23:10)
[2020-07-21 08:27] LABS: Basophils % (Auto) 0.1 % (0.0-1.8); Eosinophils # (Auto) 0.1 K/mm3 (0.0-0.4); Eosinophils % (Auto) 0.8 % (0.0-4.3); Hematocrit 30.4 % (35.5-45.6); Hemoglobin 10.2 gm/dl (11.8-15.2); Lymphocytes # (Auto) 1.3 K/mm3 (1.2-5.4); Lymphocytes % (Auto) 10.8 % (13.4-35.0); Mean Corpuscular HGB Conc 34 % (32-34); Mean Corpuscular Volume 85 fl (84-94); Monocytes # (Auto) 1.5 K/mm3 (0.0-0.8); Monocytes % (Auto) 12.8 % (0.0-7.3); Platelet Count 384 K/mm3 (140-440); Red Blood Count 3.57 M/mm3 (3.65-5.03); Red Cell Distribution Width 15.2 % (13.2-15.2)
[2020-07-21 08:52] LABS: Alanine Aminotransferase 21 units/L (7-56); Albumin 2.4 g/dL (3.9-5); Blood Urea Nitrogen 7 mg/dL (9-20); Hemolysis Index 7
[2020-07-21 09:04] LABS: BUN/Creatinine Ratio 12
[2020-07-21] MEDS: FAMOTIDINE 20 MG/2 ML INJ IV SCH ×2 (09:20→23:13)
[2020-07-21] MEDS: ASPIRIN 81 MG TAB CHEW PO SCH (09:26)
[2020-07-21] MEDS: hydrALAZINE 20 MG/1 ML INJ IV PRN (09:47)
--- NOTE | 2020-07-21 10:35 | Progress Note ---
Assessment and Plan - Patient Problems (1) Right upper quadrant pain Current Visit: Yes Status: Acute Plan to address problem: 1) FLD 2) Ambulate in halls 3) Probable dc of drain and dc home tomorrow 4) CBC and CMP tomorrow Subjective Date of service: 07/21/20 Patient Reports: Positive: no new complaints, feels better, pain is less, tolerating liquids well, afebrile Objective Vital Signs - 12hr 07/20/20 07/21/20 07/21/20 23:44 05:20 07:18 Temperature 98.9 F 98.6 F 99.2 F Pulse Rate 76 81 73 Respiratory 18 18 16 Rate Blood Pressure 145/100 138/99 141/100 O2 Sat by Pulse 96 97 96 Oximetry 07/21/20 09:47 Temperature Pulse Rate 73 Respiratory Rate Blood Pressure 141/100 O2 Sat by Pulse Oximetry - Abdomen soft, bowel sounds normal (Appropriately TTP. BARBARA drainage 30 ml, SS) - Labs 07/21/20 07:43 07/21/20 07:43 Diabetes panel 07/21/20 Range/Units 07:43 Sodium 132 L (137-145) mmol/L Potassium 3.7 (3.6-5.0) mmol/L Chloride 98.9 (98-107) mmol/L Carbon Dioxide 25 (22-30) mmol/L BUN 7 L (9-20) mg/dL Creatinine 0.6 L (0.8-1.3) mg/dL Glucose 152 H (75-100) mg/dL Calcium 8.0 L (8.4-10.2) mg/dL AST 19 (5-40) units/L ALT 21 (7-56) units/L Alkaline Phosphatase 138 H (35-129) units/L Total Protein 6.3 (6.3-8.2) g/dL Albumin 2.4 L (3.9-5) g/dL Calcium panel 07/21/20 Range/Units 07:43 Calcium 8.0 L (8.4-10.2) mg/dL Albumin 2.4 L (3.9-5) g/dL Pituitary panel 07/21/20 Range/Units 07:43 Sodium 132 L (137-145) mmol/L Potassium 3.7 (3.6-5.0) mmol/L Chloride 98.9 (98-107) mmol/L Carbon Dioxide 25 (22-30) mmol/L BUN 7 L (9-20) mg/dL Creatinine 0.6 L (0.8-1.3) mg/dL Glucose 152 H (75-100) mg/dL Calcium 8.0 L (8.4-10.2) mg/dL Adrenal panel 07/21/20 Range/Units 07:43 Sodium 132 L (137-145) mmol/L Potassium 3.7 (3.6-5.0) mmol/L Chloride 98.9 (98-107) mmol/L Carbon Dioxide 25 (22-30) mmol/L BUN 7 L (9-20) mg/dL Creatinine 0.6 L (0.8-1.3) mg/dL Glucose 152 H (75-100) mg/dL Calcium 8.0 L (8.4-10.2) mg/dL Total Bilirubin 0.90 (0.1-1.2) mg/dL AST 19 (5-40) units/L ALT 21 (7-56) units/L Alkaline Phosphatase 138 H (35-129) units/L Total Protein 6.3 (6.3-8.2) g/dL Albumin 2.4 L (3.9-5) g/dL
--- NOTE | 2020-07-21 10:38 | Electrocardiograph Report ---
[facility] Test Date: 2020-07-20 Test Time: 11:41:15 Pat Name: ARYA LORD Department: Room: B316 1 Gender: M Park Manager: WILL : 1980 Requested By: EZRA RUBY Order Number: [id number] Reading MD: Joann Owens Measurements Intervals [place] Rate: 89 P: 74 [place]: 121 QRS: 61 QRSD: 84 T: 29 QT: 332 QTc: 404 Interpretive Statements Sinus rhythm Nonspecific T wave abnormality Compared to ECG 07/17/2020 10:09:34 No significant change Electronically Signed On 07-21-2020 10:38:31 EDT by Joann Owens
[2020-07-21] MEDS ORDERED: LIDOCAINE 1%/EPINEPHRINE 1:100,000 VIAL (20 ML) INFILTRATI NR (11:00)
--- NOTE | 2020-07-21 14:01 | Progress Note ---
Assessment and Plan Assessment and plan: --Acute cholecystitis Current Visit: Yes Status: Acute Status post lap cholecystectomy Advance diet full liquids, Increase ambulation Surgery following --h/o Duodenitis Current Visit: Yes Status: Acute Change to Pepcid 20 mg twice daily Avoid NSAIDs --Intractable nausea & vomiting Current Visit: Yes Status: Acute Resolved --Abdominal pain Current Visit: Yes Status: Acute Resolved --Diabetes, type 1.5, uncontrolled, managed as type 2 Current Visit: Yes Status: Acute Accu-Cheks scale coverage ADA diet and insulin as needed --Methamphetamine abuse Current Visit: Yes Status: Acute I strongly counseled to quit recreational drug use -- DVT prophylaxis Current Visit: Yes Status: Acute Heparin 5000 units subcu every 8 hours Closely monitor patient and adjust the management as needed Plan of care reviewed with the patient and his nurse 07/18/2020; patient admitted with acute cholecystitis Surgery evaluated, n.p.o. status 07/19/2020 continue n.p.o. Possible lap cholecystectomy tomorrow Per surgery 07/20/2020; MRCP,s/p lap cholecystectomy 07/21/2020; patient started on full liquid diet Increase ambulation, advance diet as tolerated Possible discharge home tomorrow if stable History Interval history: I have seen and examined the patient at the bedside Patient's chart and medications reviewed Patient underwent lap cholecystectomy yesterday Today feels better, tolerating clear liquid diet Complains of some pain Vital signs noted Hospitalist Physical - Constitutional Vitals: Temp Pulse Resp BP Pulse Ox 99.1 F 89 16 148/91 97 07/21/20 11:24 07/21/20 11:24 07/21/20 11:24 07/21/20 11:24 07/21/20 11:24 General appearance: Present: no acute distress, well-nourished - EENT Eyes: Present: PERRL, EOM intact - Neck Neck: Present: supple, normal ROM - Respiratory Respiratory effort: normal Respiratory: bilateral: diminished, negative: rales, rhonchi, wheezing - Cardiovascular Rhythm: regular Heart Sounds: Present: S1 & S2 - Extremities Extremities: no ischemia, No edema - Abdominal General gastrointestinal: soft, non-tender, non-distended, normal bowel sounds - Integumentary Integumentary: Present: clear, warm - Psychiatric Psychiatric: appropriate mood/affect, cooperative - Neurologic Neurologic: moves all extremities HEART Score - HEART Score EKG: Normal Age: < 45 Risk factors: 1-2 risk factors Troponin: Troponin T < 0.010 ng/mL (0.00-0.029) 07/18/20 04:05 Troponin: < normal limit - Critical Actions Critical Actions: 0-3 pts:0.9-1.7%risk of adverse cardiac event.Candidate for discharge Results - Labs CBC & Chem 7: 07/21/20 07:43 07/21/20 07:43 Labs: Laboratory Last Values WBC 11.6 K/mm3 (4.5-11.0) H 07/21/20 07:43 RBC 3.57 M/mm3 (3.65-5.03) L 07/21/20 07:43 Hgb 10.2 gm/dl (11.8-15.2) L 07/21/20 07:43 Hct 30.4 % (35.5-45.6) L 07/21/20 07:43 MCV 85 fl (84-94) 07/21/20 07:43 MCH 29 pg (28-32) 07/21/20 07:43 MCHC 34 % (32-34) 07/21/20 07:43 RDW 15.2 % (13.2-15.2) 07/21/20 07:43 Plt Count 384 K/mm3 (140-440) 07/21/20 07:43 Lymph % (Auto) 10.8 % (13.4-35.0) L 07/21/20 07:43 Bureau % (Auto) 12.8 % (0.0-7.3) H 07/21/20 07:43 Eos % (Auto) 0.8 % (0.0-4.3) 07/21/20 07:43 Baso % (Auto) 0.1 % (0.0-1.8) 07/21/20 07:43 Lymph # (Auto) 1.3 K/mm3 (1.2-5.4) 07/21/20 07:43 Bureau # (Auto) 1.5 K/mm3 (0.0-0.8) H 07/21/20 07:43 Eos # (Auto) 0.1 K/mm3 (0.0-0.4) 07/21/20 07:43 Baso # (Auto) 0.0 K/mm3 (0.0-0.1) 07/21/20 07:43 Add Manual Diff Complete 07/20/20 04:06 Total Counted 200 07/20/20 04:06 Seg Neutrophils % 75.5 % (40.0-70.0) H 07/21/20 07:43 Seg Neuts % (Manual) 89.0 % (40.0-70.0) H 07/20/20 04:06 Band Neutrophils % 4.0 % 07/18/20 04:05 Lymphocytes % (Manual) 6.5 % (13.4-35.0) L 07/20/20 04:06 Reactive Lymphs % (Man) 1.0 % 07/19/20 04:08 Monocytes % (Manual) 4.5 % (0.0-7.3) 07/20/20 04:06 Basophils % (Manual) 1.0 % (0.0-1.8) 07/19/20 04:08 Metamyelocytes % 2.0 % 07/18/20 04:05 Nucleated RBC % Not Reportable 07/20/20 04:06 Seg Neutrophils # 8.8 K/mm3 (1.8-7.7) H 07/21/20 07:43 Seg Neutrophils # Man 18.7 K/mm3 (1.8-7.7) H 07/20/20 04:06 Band Neutrophils # 0.0 K/mm3 07/20/20 04:06 Lymphocytes # (Manual) 1.4 K/mm3 (1.2-5.4) 07/20/20 04:06 Abs React Lymphs (Man) 0.0 K/mm3 07/20/20 04:06 Monocytes # (Manual) 0.9 K/mm3 (0.0-0.8) H 07/20/20 04:06 Eosinophils # (Manual) 0.0 K/mm3 (0.0-0.4) 07/20/20 04:06 Basophils # (Manual) 0.0 K/mm3 (0.0-0.1) 07/20/20 04:06 Metamyelocytes # 0.0 K/mm3 07/20/20 04:06 Myelocytes # 0.0 K/mm3 07/20/20 04:06 Promyelocytes # 0.0 K/mm3 07/20/20 04:06 Blast Cells # 0.0 K/mm3 07/20/20 04:06 Pathologist Review 07/17/20 23:05 WBC Morphology Not Reportable 07/20/20 04:06 Hypersegmented Neuts Not Reportable 07/20/20 04:06 Hyposegmented Neuts Not Reportable 07/20/20 04:06 Hypogranular Neuts Not Reportable 07/20/20 04:06 Smudge Cells Not Reportable 07/20/20 04:06 Toxic Granulation Not Reportable 07/20/20 04:06 Toxic Vacuolation Not Reportable 07/20/20 04:06 Dohle Bodies Not Reportable 07/20/20 04:06 Pelger-Huet Anomaly Not Reportable 07/20/20 04:06 Charlotte Rods Not Reportable 07/20/20 04:06 Platelet Estimate Consistent w auto 07/20/20 04:06 Clumped Platelets Not Reportable 07/20/20 04:06 Plt Clumps, EDTA Not Reportable 07/20/20 04:06 Large Platelets Not Reportable 07/20/20 04:06 Giant Platelets Not Reportable 07/20/20 04:06 Platelet Satelliting Not Reportable 07/20/20 04:06 Plt Morphology Comment Not Reportable 07/20/20 04:06 RBC Morphology Not Reportable 07/20/20 04:06 Dimorphic RBCs Not Reportable 07/20/20 04:06 Polychromasia Not Reportable 07/20/20 04:06 Hypochromasia Not Reportable 07/20/20 04:06 Poikilocytosis Not Reportable 07/20/20 04:06 Anisocytosis 1+ 07/20/20 04:06 Microcytosis Not Reportable 07/20/20 04:06 Macrocytosis Not Reportable 07/20/20 04:06 Spherocytes Not Reportable 07/20/20 04:06 Pappenheimer Bodies Not Reportable 07/20/20 04:06 Sickle Cells Not Reportable 07/20/20 04:06 Target Cells Not Reportable 07/20/20 04:06 Tear Drop Cells Not Reportable 07/20/20 04:06 Ovalocytes Not Reportable 07/20/20 04:06 Helmet Cells Not Reportable 07/20/20 04:06 Campos-[place] Bodies Not Reportable 07/20/20 04:06 [place] Rings Not Reportable 07/20/20 04:06 Chidi Cells Not Reportable 07/20/20 04:06 Bite Cells Not Reportable 07/20/20 04:06 Crenated Cell Not Reportable 07/20/20 04:06 Elliptocytes Not Reportable 07/20/20 04:06 Acanthocytes (Spur) Not Reportable 07/20/20 04:06 Rouleaux Not Reportable 07/20/20 04:06 Hemoglobin C Crystals Not Reportable 07/20/20 04:06 Schistocytes Not Reportable 07/20/20 04:06 Malaria parasites Not Reportable 07/20/20 04:06 Tony Bodies Not Reportable 07/20/20 04:06 Hem Pathologist Commnt No 07/20/20 04:06 Sodium 132 mmol/L (137-145) L 07/21/20 07:43 Potassium 3.7 mmol/L (3.6-5.0) 07/21/20 07:43 Chloride 98.9 mmol/L (98-107) 07/21/20 07:43 Carbon Dioxide 25 mmol/L (22-30) 07/21/20 07:43 Anion Gap 12 mmol/L 07/21/20 07:43 BUN 7 mg/dL (9-20) L 07/21/20 07:43 Creatinine 0.6 mg/dL (0.8-1.3) L 07/21/20 07:43 Estimated GFR > 60 ml/min 07/21/20 07:43 BUN/Creatinine Ratio 12 % 07/21/20 07:43 Glucose 152 mg/dL (75-100) H 07/21/20 07:43 POC Glucose 119 mg/dL (70-105) H 07/21/20 05:32 Calcium 8.0 mg/dL (8.4-10.2) L 07/21/20 07:43 Total Bilirubin 0.90 mg/dL (0.1-1.2) 07/21/20 07:43 AST 19 units/L (5-40) 07/21/20 07:43 ALT 21 units/L (7-56) 07/21/20 07:43 Alkaline Phosphatase 138 units/L (35-129) H 07/21/20 07:43 Troponin T < 0.010 ng/mL (0.00-0.029) 07/18/20 04:05 Total Protein 6.3 g/dL (6.3-8.2) 07/21/20 07:43 Albumin 2.4 g/dL (3.9-5) L 07/21/20 07:43 Albumin/Globulin Ratio 0.6 % 07/21/20 07:43 Lipase 23 units/L (13-60) 07/17/20 12:11 Bruno/IV: Voiding Method Toilet Active Medications - Current Medications Current Medications: Generic Name Dose Route Start Last Admin Trade Name Freq PRN Reason Stop Dose Admin Acetaminophen 650 mg 07/17/20 22:08 Acetaminophen 325 Mg Tab PO Q4H PRN Pain MILD(1-3)/Fever >100.5/CONRAD Acetaminophen 650 mg 07/19/20 04:29 07/19/20 04:40 Acetaminophen 650 Mg Rect Supp ME 650 mg Q4H PRN Administration Pain, Mild (1-3) Albuterol 2.5 mg 07/18/20 22:07 Albuterol 2.5 Mg/3 Ml Nebu IH Q4HRT PRN Shortness Of Breath Aspirin 81 mg 07/18/20 10:00 07/21/20 09:26 Aspirin 81 Mg Tab Chew PO 81 mg QDAY RUBINA Administration Atorvastatin Calcium 40 mg 07/18/20 22:00 07/20/20 22:50 Atorvastatin 40 Mg Tab PO 40 mg QHS RUBINA Administration Dextrose 50 ml 07/17/20 22:22 Dextrose 50% In Water (25gm) 50 Ml Syringe IV Q30MIN PRN Hypoglycemia Protocol Famotidine 20 mg 07/18/20 10:00 07/21/20 09:20 Famotidine 20 Mg/2 Ml Inj IV 20 mg BID RUBINA Administration Heparin Sodium (Porcine) 5,000 unit 07/18/20 06:00 07/21/20 13:53 Heparin 5,000 Unit/1 Ml Vial SUB-Q 5,000 unit Q8HR RUBINA Administration Hydralazine HCl 10 mg 07/17/20 22:21 07/21/20 09:47 Hydralazine 20 Mg/1 Ml Inj IV 10 mg Q6H PRN Administration htn Dextrose/Sodium Chloride 1,000 mls @ 100 mls/hr 07/17/20 23:00 07/21/20 10:58 D5/0.45ns IV 100 mls/hr DIRECT RUBINA Administration Piperacillin Sod/Tazobactam Sod 4.5 gm in 100 mls @ 200 mls/hr 07/18/20 03:00 07/21/20 10:49 Zosyn/Ns 4.5gm/100ml IV 100 mls/hr Q8H RUBINA Administration Protocol Insulin Human Lispro 0 unit 07/18/20 00:00 07/21/20 12:23 Insulin Lispro 100 Unit/Ml SUB-Q Not Given Q6HR [facility] Protocol Lidocaine/Epinephrine 20 ml 07/21/20 11:00 Lidocaine 1%/Epinephrine 1:100,000 Vial (20 Ml) INFILTRATI 07/21/20 17:00 ONCE NR Morphine Sulfate 2 mg 07/17/20 22:08 07/21/20 09:21 Morphine 2 Mg/1 Ml Inj IV 2 mg Q4H PRN Administration Pain, Moderate (4-6) Nitroglycerin 0.4 mg 07/17/20 22:08 Nitroglycerin 0.4 Mg Tab Subl SL Q5M PRN Chest Pain Ondansetron HCl 4 mg 07/17/20 22:08 07/18/20 22:48 Ondansetron 4 Mg/2 Ml Inj IV 4 mg Q8H PRN Administration Nausea And Vomiting Sodium Chloride 10 ml 07/18/20 10:00 07/21/20 09:26 Sodium Chloride 0.9% 10 Ml Flush Syringe IV Not Given BID RUBINA Sodium Chloride 10 ml 07/17/20 22:08 Sodium Chloride 0.9% 10 Ml Flush Syringe IV PRN PRN LINE FLUSH Tramadol HCl 50 mg 07/17/20 22:08 Tramadol 50 Mg Tab PO Q6H PRN Pain, Moderate (4-6) Nutrition/Malnutrition Assess - Dietary Evaluation Nutrition/Malnutrition Findings: Nutrition Notes Start: 07/18/20 09:35 Freq: Status: Active Protocol: Document 07/21/20 11:04 YOLANDA (Rec: 07/21/20 11:10 YOLANDA [id number]) Nutrition Notes Initial or Follow up Assessment Current Diagnosis Diabetes Other Pertinent Diagnosis Acute cholecystitis s/p lap cholecystectomy, Duodenitis Current Diet Cl liq Labs/Tests Na 132 BG 152 Pertinent Medications D5 1/2NS at 100ml/hr Height 5 ft 6 in Weight 68.03 kg [place] Body Weight (kg) 64.54 BMI 24.2 Weight Status Appropriate Subjective/Other Information Pt seen at bedside; he's OOB sitting in chair. He reports PO tolerance of cl liq diet and is ready to start eating. Pt with hx of methamphetamine abuse. Burn Absent Trauma Absent Minimum of two criteria No #1 Nutrition Diagnosis No nutrition diagnosis at this time As Evidenced by Signs and Symptoms pt reports no recent wt changes and has good appetite Is patient on ventilator? No Is Patient Ambulatory and/or Out of Bed Yes REE-(Shafer-St. Jeor-ambulatory/OOB) [ 2005.965 [id number]] Calculation Used for Recommendations Shafer-St Jeor Additional Notes Pro needs 0.8-1g/k-68g/ day Fluid needs 1ml/kcal Nutrition Intervention Change Diet Order: Advance diet when medically feasible Goal #1 Diet advancement to meet nutrient needs Anticipated Discharge Needs: None identified at this time Follow-Up By: 07/23/20 Additional Comments F/U: diet advancement, intakes
[2020-07-21] MEDS: traMADol 50 MG TAB PO PRN (23:03)
[2020-07-22] MEDS: INSULIN LISPRO 100 UNIT/ML SUB-Q SCH ×3 (03:07→13:18)
[2020-07-22] MEDS: PIPERACIL/TAZOBACTA 4.5/NS 100 4.5 GM/100 ML VIAL IV SCH ×2 (03:28→11:21)
[2020-07-22] MEDS: MORPHINE 2 MG/1 ML INJ IV PRN ×2 (03:29→07:50)
[2020-07-22 05:05] LABS: Basophils % (Auto) 0.2 % (0.0-1.8); Eosinophils # (Auto) 0.2 K/mm3 (0.0-0.4); Eosinophils % (Auto) 1.8 % (0.0-4.3); Hemoglobin 10.2 gm/dl (11.8-15.2); Lymphocytes # (Auto) 1.9 K/mm3 (1.2-5.4); Lymphocytes % (Auto) 18.4 % (13.4-35.0); Mean Corpuscular HGB Conc 35 % (32-34); Mean Corpuscular Volume 84 fl (84-94); Monocytes # (Auto) 1.5 K/mm3 (0.0-0.8); Platelet Count 380 K/mm3 (140-440); Red Blood Count 3.44 M/mm3 (3.65-5.03); Red Cell Distribution Width 15.4 % (13.2-15.2)
[2020-07-22] MEDS: HEPARIN 5,000 UNIT/1 ML VIAL SUB-Q SCH (05:44)
[2020-07-22 05:59] LABS: Alanine Aminotransferase 18 units/L (7-56); Albumin 2.8 g/dL (3.9-5); Blood Urea Nitrogen 6 mg/dL (9-20); Calcium 8.1 mg/dL (8.4-10.2); Hemolysis Index 0
[2020-07-22 06:01] LABS: BUN/Creatinine Ratio 10
--- NOTE | 2020-07-22 09:52 | Progress Note ---
Assessment and Plan - Patient Problems (1) Right upper quadrant pain Current Visit: Yes Status: Acute Plan to address problem: 1) BARBARA was removed. 2) Pt can be discharged from my perspective. 3) F/u in office in 2 weeks 4) Regular diet 5) No lifting or straining 6) May shower in 72 hours 7) Rx - Narcotic of choice + Cipro, 500 mg po bid X 7 days Subjective Date of service: 07/22/20 Patient Reports: Positive: no new complaints, feels better, pain is less, tolerating liquids well, flatus Objective Vital Signs - 12hr 07/21/20 07/22/20 07/22/20 23:44 05:51 08:04 Temperature 98.3 F 97.9 F 98.1 F Pulse Rate 79 69 Respiratory 18 18 18 Rate Blood Pressure 153/91 158/97 156/104 O2 Sat by Pulse 94 95 Oximetry - Abdomen soft, bowel sounds normal (NT. BARBARA drainage is SS.) - Labs 07/22/20 04:05 07/22/20 04:05 Diabetes panel 07/21/20 07/22/20 Range/Units 15:54 04:05 Sodium 138 (137-145) mmol/L Potassium 3.4 L (3.6-5.0) mmol/L Chloride 101.4 (98-107) mmol/L Carbon Dioxide 26 (22-30) mmol/L BUN 6 L (9-20) mg/dL Creatinine 0.6 L (0.8-1.3) mg/dL Glucose 112 H (75-100) mg/dL Hemoglobin A1c 5.3 (4-6) % Calcium 8.1 L (8.4-10.2) mg/dL AST 13 (5-40) units/L ALT 18 (7-56) units/L Alkaline Phosphatase 133 H (35-129) units/L Total Protein 6.1 L (6.3-8.2) g/dL Albumin 2.8 L (3.9-5) g/dL Calcium panel 07/22/20 Range/Units 04:05 Calcium 8.1 L (8.4-10.2) mg/dL Albumin 2.8 L (3.9-5) g/dL Pituitary panel 07/22/20 Range/Units 04:05 Sodium 138 (137-145) mmol/L Potassium 3.4 L (3.6-5.0) mmol/L Chloride 101.4 (98-107) mmol/L Carbon Dioxide 26 (22-30) mmol/L BUN 6 L (9-20) mg/dL Creatinine 0.6 L (0.8-1.3) mg/dL Glucose 112 H (75-100) mg/dL Calcium 8.1 L (8.4-10.2) mg/dL Adrenal panel 07/22/20 Range/Units 04:05 Sodium 138 (137-145) mmol/L Potassium 3.4 L (3.6-5.0) mmol/L Chloride 101.4 (98-107) mmol/L Carbon Dioxide 26 (22-30) mmol/L BUN 6 L (9-20) mg/dL Creatinine 0.6 L (0.8-1.3) mg/dL Glucose 112 H (75-100) mg/dL Calcium 8.1 L (8.4-10.2) mg/dL Total Bilirubin 0.70 (0.1-1.2) mg/dL AST 13 (5-40) units/L ALT 18 (7-56) units/L Alkaline Phosphatase 133 H (35-129) units/L Total Protein 6.1 L (6.3-8.2) g/dL Albumin 2.8 L (3.9-5) g/dL
[2020-07-22] MEDS: FAMOTIDINE 20 MG/2 ML INJ IV SCH (11:21)
[2020-07-22] MEDS: ASPIRIN 81 MG TAB CHEW PO SCH (11:21)
[2020-07-22] MEDS ORDERED: POTASSIUM CHLORIDE ER 10 MEQ TAB PO NR (11:27)
[2020-07-22 12:29] VITALS: BP 142/80
[2020-07-22] MEDS: traMADol 50 MG TAB PO PRN (13:25)
--- NOTE | 2020-07-22 14:31 | Discharge Summary ---
Providers - Providers Date of Admission: 07/19/20 10:25 Date of discharge: 07/22/20 Attending physician: BENEDICTO PARRA 07/17/20 Consult to Cardiac Rehabilitation [CONS] Routine Reason For Exam: Phase I 07/17/20 21:59 Consult to Physician [CONS] Routine Comment: Consulting Provider: VIRA STOKES Physician Instructions: Reason For Exam: Cholecystitis 07/17/20 22:22 Consult to Dietitian/Nutrition [CONS] Routine Physician Instructions: Reason For Exam: Reason for Consult: Diet education Primary care physician: FRIT MIXER AND BURNER Hospitalization Reason for admission: Abdominal pain/acute cholecystitis Condition: Stable Pertinent studies: Chest x-ray CT abdomen and pelvis MRCP Abdominal ultrasound Procedures: Status post lap cholecystectomy Hospital course: Chest pain epigastric pain 40-year-old male with past medical history of DM 2 and methamphetamine use brought in by EMS for chest/epigastric pain which is pressure-like which began last night after using methamphetamine yesterday by inhalation. Patient says that last night although the pain was in his chest, this morning it migrated more to his abdomen. It was accompanied by nausea and vomiting which is since resolved. The patient's states that the pain has been constant but the last time he had chest pain was last night. With the chest pain, it was nonradiating and was not accompanied by shortness of breath, palpitations, or radiation of the pain to the arms or to the jaw. He denies IV drug use or use of any other substances. At this time he no longer feels nauseated but does have some pain in his abdomen. He denies any other associated symptoms or complaints. Patient was initially evaluated in the emergency room Work-up is consistent with acute cholecystitis, patient was evaluated by surgery, underwent MRCP Subsequently patient had uncomplicated lap cholecystectomy. Patient's postop time was comfortable, without any complaints Today patient is comfortable no new complaints vital signs stable Strongly advised to comply with medications diet and follow-up visits Advised to quit recreational drug use Patient verbalized understanding Consultants cleared for discharge And follow-up per schedule Patient is stable at discharge Discharge diagnosis; --Acute cholecystitis Current Visit: Yes Status: Acute Status post lap cholecystectomy Advance diet follow-up with surgery upon discharge --h/o Duodenitis Current Visit: Yes Status: Acute Change to Pepcid 20 mg twice daily Avoid NSAIDs --Intractable nausea & vomiting Current Visit: Yes Status: Acute Resolved --Abdominal pain Current Visit: Yes Status: Acute Resolved --Diabetes, type 1.5, uncontrolled, managed as type 2 Current Visit: Yes Status: Acute Accu-Cheks scale coverage ADA diet and insulin as needed --Methamphetamine abuse Current Visit: Yes Status: Acute I strongly counseled to quit recreational drug use -- DVT prophylaxis Current Visit: Yes Status: Acute Heparin 5000 units subcu every 8 hours during hospital stay Patient advised increase ambulation upon discharge Patient is stable for discharge Disposition: [place]-01 TO HOME OR SELFCARE Final Discharge Diagnosis (Prints w/discharge instructions): Acute cholecystitis. s/p lap cholecystectomy. Duodenitis. Intractable nausea vomiting. Type 2 diabetes mellitus. Methamphetamine abuse Time spent for discharge: 35 min Core Measure Documentation - Palliative Care Palliative Care/ Comfort Measures: Not Applicable - Core Measures Any of the following diagnoses?: none Exam - Constitutional Vitals: Temp Pulse Resp BP Pulse Ox 97.6 F 75 18 142/80 97 07/22/20 11:58 07/22/20 11:58 07/22/20 11:58 07/22/20 11:58 07/22/20 11:58 General appearance: Present: no acute distress, well-nourished - EENT Eyes: Present: PERRL, EOM intact - Neck Neck: Present: supple, normal ROM - Respiratory Respiratory effort: normal Respiratory: bilateral: diminished, negative: rales, rhonchi, wheezing - Cardiovascular Rhythm: regular Heart Sounds: Present: S1 & S2 - Extremities Extremities: no ischemia, No edema - Abdominal General gastrointestinal: Present: soft, non-tender, non-distended, normal bowel sounds - Integumentary Integumentary: Present: clear, warm - Musculoskeletal Musculoskeletal: strength equal bilaterally - Psychiatric Psychiatric: appropriate mood/affect, cooperative - Neurologic Neurologic: CNII-XII intact, moves all extremities Plan Activity: advance as tolerated Diet: regular Additional Instructions: F/u in Dr. Stokes's office in 2 weeks. Regular diet. No lifting or straining. May shower in 72 hours. Advised to quit recreational drug use. If you have worsening symptoms contact MD or go to emergency room Follow up with: PRIMARY MD DESMOND [Primary Care Provider] - 3-5 Days VIRA STOKES MD [Staff Physician] - 14 Days Prescriptions: Ciprofloxacin HCl 500 mg PO BID #14 tablet oxyCODONE /ACETAMINOPHEN [Percocet 5/325] 1 tab PO TID PRN #20 tablet PRN Reason: Pain , Severe (7-10)
== END 2020-07-22 17:12 | disposition home or self-care (01) | DRG 419 ==
LOC: ED 09:44 → 3B-SURG 21:55 → OBSVTOIN 07-19 10:25
PROVIDERS: ADMIT Hospitalist; ATTEND Internal Medicine
PROC: 0FT44ZZ Resection of Gallbladder, Percutaneous Endoscopic Approach (ICD-10-PCS; principal; 2020-07-20)
DX: K81.0 Acute cholecystitis (principal); K29.80 Duodenitis without bleeding; F15.19 Other stimulant abuse with unspecified stimulant-induced disorder; E11.8 Type 2 diabetes mellitus with unspecified complications; R56.9 Unspecified convulsions; I10 Essential (primary) hypertension; F17.200 Nicotine dependence, unspecified, uncomplicated; Z79.899 Other long term (current) drug therapy; Z79.891 Long term (current) use of opiate analgesic; Z79.01 Long term (current) use of anticoagulants; Z79.4 Long term (current) use of insulin
CPT/HCPCS: 36415; 71046; 74177; 74181; 76705; 80048; 80053; 82962; 83036; 83690; 84484; 85007; 85025; 88304; 93005; 93306; 94640; 96365; 96366; 96375; 96376; G0378; A4217; A9270-GY; J0330; J0360; J1170; J1644; J2270; J2405; J2543; J2704; J2710; J7030; Q9967